=== PATIENT | female | born 1975 | race Caucasian/White ===

== ENCOUNTER 2019-03-08 20:12 | Inpatient (IN) | payer OTHER, SELFPAY ==
[2019-03-08 20:13] VITALS: BP 130/76; PULSE 112; RESP 16; TEMP 37.8; O2SAT 97; BMI 36.6
[2019-03-08 21:25] LABS: Mucous, Urine 0 SEEN /hpf (<or=2+); Red Blood Cells-Urine 0 SEEN /hpf (0-5); Squamous Epithelial Cells - UA 0 SEEN /hpf (5-10); White Blood Cells 0 SEEN /hpf (0-5)
[2019-03-08 21:27] LABS: Color, Urine Yellow (Yellow); Glucose, Dipstick 1000 mg/dl (Normal); Ketone-Dipstick Negative (Negative); Leukocyte Esterase-Dipstick Negative /ul (Negative); Nitrite-Dipstick Negative (Negative); Occult Blood-Urine Negative /ul (Negative); Protein-Dipstick Negative (Negative); Urine Bilirubin Dipstick Negative (Negative); Urine Clarity Clear (Clear); Urine Urobilinogen Normal (Normal)
[2019-03-08 21:30] VITALS: BP 130/76; PULSE 112; RESP 16; TEMP 37.8; O2SAT 97
[2019-03-08 21:33] LABS: Bacteria RARE /hpf (None Seen)
--- NOTE | 2019-03-08 21:33 | CT_ITS ---
STUDY: CT ABDOMEN AND PELVIS WITH CONTRAST REASON FOR EXAM: Female, 43 years old. Nausea and vomiting for one week. Abdominal pain. RADIATION DOSAGE (If Supplied By Facility): CTDIvol = ( 24.48 ) mGy, DLP = ( 1557.94 ) mGycm TECHNIQUE: Transaxial images were obtained from the dome of the diaphragm to the symphysis pubis with oral contrast. 100 IV/Oral Isovue 370 was administered. Sagittal and coronal images were reconstructed. Individualized dose optimization techniques were used for this CT. COMPARISON: None. FINDINGS: The visualized lung bases are unremarkable. The visualized portions of the heart are within normal limits. Normal liver. There are surgical clips in the gallbladder fossa consistent with a prior cholecystectomy. Splenomegaly without mass. Normal pancreas. Normal bilateral adrenal glands. Normal right kidney. Normal left kidney. Normal visualized stomach. Normal small intestine. Normal colon. There is a large abscess in the mesentery adjacent to the cecum appears to involve the proximal appendix. This measures 7.7 x 6.7 x 5.4 cm. Normal abdominal aorta. Normal inferior vena cava. Normal retroperitoneum. Normal urinary bladder. There is an IUD within the uterus. The adnexa are unremarkable. There is no pelvic lymphadenopathy or mass. No free air or free fluid is seen within the peritoneal cavity. Normal abdominal wall. Normal osseous structures. CT/Abdomen/Pelvis WITH Contrast IMPRESSION: 1. Large right lower quadrant abscess. Question appendiceal abscess. 2. Mild splenomegaly. 3. IUD. N.B. : The above information has been verbally conveyed by Noman Rodrigues DO to Kelly Naranjo MD, on 03/08/2019 23:53:59 (ET). Electronically Signed: Noman Rodrigues DO at 23:55 EDT Tel [phone], Service support ,
[2019-03-08 21:34] LABS: Internal QC Validated? YES +Cl - CLEAR BKGD; Pregnancy, Serum, hCG Quali. NEGATIVE Negative
[2019-03-08 21:39] LABS: Anion Gap 10 (5-15); BUN 9 mg/dL (7-18); BUN/Creat Ratio 11.4 RATIO (10-20); Calcium,Total 8.4 mg/dL (8.5-10.1); Chloride 93 mmol/L (98-107); Creatinine, Serum 0.79 mg/dL (0.55-1.02); EST Glomerular Filtration Rate 84 mL/min (>60); Est Glom Filt Rate - Afr Amer 101 mL/min (>60); Estimated Creatinine Clearance 78.47 ml/min; Glucose 398 mg/dL (74-106); Potassium 3.9 mmol/L (3.5-5.1); Sodium Level 128 mmol/L (136-145)
[2019-03-08 21:49] LABS: Basophil# 0.06 X10^3/uL; Basophil% 0.5 % (0-1); Eosinophil# 0.05 X10^3/uL; Eosinophils% 0.4 % (0-5); Hematocrit 35.6 % (37-47); Hemoglobin 12.1 g/dl (12.0-15.0); Lymphocyte % 14.2 % (19-41); Mean Corpuscular Hgb 27.8 pg (27.0-32.0); Mean Corpuscular Volume 81.7 fL (81-99); Mean Platelet Vol. 10.2 fl (6.2-12.0); Monocyte# 1.09 X10^3/uL; Monocyte% 9.1 % (0-10); Neutrophil # 8.99 X10^3/uL (2.7-7.7); Neutrophil % 74.9 % (47-70); Platelet Count 275 K/mm3 (150-450); RBC Distribution Width CV 13.1 % (11.6-14.6); RBC Distribution Width SD 38.5 fl (35.1-43.9); Red Blood Count 4.36 M/mm3 (4.2-5.4)
[2019-03-08 21:50] LABS: Differential Indicated SCAN CRITERIA MET; POSITIVE COUNT NO; POSITIVE DIFFERENTIAL NO; POSITIVE MORPHOLOGY YES
[2019-03-08] MEDS: Ondansetron 4 MG/2 ML Vial IV (22:17)
[2019-03-08] MEDS: Acetaminophen 500 MG Tablet 1000 MG PO (22:17)
[2019-03-08] MEDS: 0.9% Normal Saline 1,000 ML 1000 ML IV (22:17)
[2019-03-08] MEDS: Morphine 4 MG/ML Syringe IV (22:17)
[2019-03-08 22:24] LABS: Atypical Lymphocyte RARE %; Differential Comment SCANNED; Platelet Estimate ADEQUATE (ADEQ)
[2019-03-08 23:31] VITALS: BP 118/62; PULSE 84; RESP 22; TEMP 37.1; O2SAT 97
[2019-03-09] VITALS (19 sets, daily range): BP systolic 103–127; BP diastolic 55–84; PULSE 84–111; RESP 16–18; TEMP 36.7–38.4; O2SAT 88–100; BMI 36.1
--- NOTE | 2019-03-09 | COL_PTH ---
PATIENT: BENI RUBIO LOC: MS3 U#:[id number] AGE/SX: 43/F ROOM: AL318 RE03/09/[address]: Dr. Akbar Weems MD : 1975 BED: 1 DIS: 03/14/2019 SPEC #: [id number] RECD: 03/09/19 13:10 STATUS: LIZZY REQ #: [id number] ADAL: 03/09/19 00:[address]: Anjelica Jeffries DEPT: SURGICAL PATHOLOGY RECD BY: Wilder Rowland ENTERED: 03/09/19 14:20 SP TYPE: COLON OTHR DR: MD Dr. Gabriel Brennan DO Dr. Tamera Robotham, MD Dr. William Lago, MD Tissues: A - Colon, NOS B - Colon, NOS Procedures: Surgery Specimen Level IV Surgery Specimen Level V Comments: @ Ordering doctor for SUV edited from to @ by RGOOD at 03/09/19 1522 @ Submitting doctor edited from to @ by RGOOD at 03/09/19 1522 HEADER OPERATION: Diagnostic laparoscopy PRE-OP DIAGNOSIS: Perforated appendicitis with abscess TISSUE SUBMITTED: A - Cecum, B - Small bowel segment MICROSCOPIC DIAGNOSIS A. Cecum, segmental resection: Ruptured appendix with associated appendicitis, periappendicitis, abscess formation and adhesions. Margins of resection with no significant pathologic change. Cecum with serosal adhesions and acute and chronic inflammation. Three out of three lymph nodes with no pathologic change. B. Small bowel, segmental resection: Serosal adhesions, fibrinoid material and acute inflammation. AM:lee 03/11/19 COMMENT Case has been reviewed in consultation with Dr. Arrieta who concurs with the above diagnosis. IDC:SJ MICROSCOPIC DESCRIPTION Slides are reviewed. GROSS DESCRIPTION A - Received in fixative is one container labeled with the patient's name and designated cecum. The specimen consists of dilated cecum, segment of small intestine and a pink-hartley mass at the site of appendix. The cecum measures 10 cm in length and up to 9 cm in diameter. The segment of small intestine measures 11 cm in length and 2 cm in diameter. The mass at the site of appendicular area measures 8 x 5 x 4 cm. Both resection margins are stapled. The appendicular opening in the cecum shows markedly congested area. More dictation will follow after overnight fixation. The lumen contains small amount of hemorrhagic material. / SJ: 03/09/19 The appendix measures 5 cm in length and up to 1 cm in diameter. The lumen is pin point. Sections of pericolonic adipose tissue reveal two lymph nodes. The largest lymph node measures 1 cm in greatest dimension. Drilling Fluids Specialist sections are submitted in six cassettes as follows: 1 - resection margin, 24?- appendix, 5 - small intestine, large intestine and ileocecal valve, 6 - pericolonic adipose tissue and lymph nodes. / : 03/10/19 B - Received in fixative is one container labeled with the patient's name and designated small bowel. The specimen consists of a segment of small bowel measuring 10 cm in length. Both resection margins are stapled. The attached mesentery measures up to 3 cm in width. The serosal is focally covered with hartley, purulent exudate. No mucosal lesion is identified. Sections will be submitted after overnight fixation. / SJ: 03/09/19 Sections of the mesenteric tissue do not reveal any obviously enlarged lymph node. No mucosal lesion is identified. Drilling Fluids Specialist sections are submitted in three cassettes as follows: 1 - resection margin, 2??aircraft sales representative section of serosal surface covered with hartley, purulent exudate, 3 - aircraft sales representative section from other area and mesenteric tissue. / :lee 03/10/19 TC:2 CPT: 57875, 38332
--- NOTE | 2019-03-09 00:40 | CT_ITS ---
We are attempting to reach Kelly Naranjo MD to discuss findings. An addendum with communication details will be sent when the communication is complete. HISTORY: Pain EXAMINATION: CT Pelvis W/O Contrast TECHNIQUE:Routine noncontrast bone CT protocol was performed of the pelvis. 2-D reformats were performed by the technologist. A radiation dose optimization technique was used for this scan. IV Contrast dosage and agent: None. COMPARISON: CT abdomen and pelvis 03/08/[address] pelvis without additional contrast was performed. Previous IV contrast and oral contrast administration. Delayed scanning is helpful. There is transit of oral contrast into the colon. No bowel obstruction. The small bowel is nondilated. The terminal ileum shows compression from right lower quadrant abscess with air-fluid level. No communication of oral contrast with the abscess cavity which measures approximately 7 cm in diameter. Inferior and medial to the abscess cavity there is a tubular structure which appears related to the more distal appendix. The abscess is in keeping with appendicitis complicated by abscess formation. The abscess cavity abuts the cecum, terminal ileum, and upper margin of the right ovary. No pneumoperitoneum or free pelvic fluid. Bilateral renal excretion of contrast without hydronephrosis. The right ureter is well visualized and appears normal. Anteverted uterus with IUD in place which appears in appropriate position. Normal left ovary. Right ovarian 1.9 cm cyst. Normal urinary bladder. Bones: No acute osseous abnormality. CT/Pelvis without IV Contrast IMPRESSION: 1. Right lower quadrant 7 cm abscess with air-fluid level in keeping with appendiceal abscess. Details above. Individualized dose optimization techniques were used for this CT. at 0202 Reported and signed by: Blanco Lizarraga MD Electronically Signed: Blanco Lizarraga, at 2:01 EDT Tel , Service support ,
[2019-03-09] MEDS: Ciprofloxacin 400 MG/200 ML BAG 200 MG IV ×3 (00:50→21:18)
[2019-03-09] MEDS: 0.9% Normal Saline 1,000 ML 150 ML IV (00:50)
--- NOTE | 2019-03-09 01:16 | ED.DCSUM_ITS ---
- ER Visit Summary Date of Service: 03/09/19 Chief Complaint: Abdominal pain, nausea, vomiting History of Present Illness: The patient is a 43 F with a 9-day history of abdominal pain. She states she initially had generalized abdominal pain that is more localized to the right lower quadrant and now intermittent. She still has occasional fevers and still has nausea. Vomiting is improved. She states her last bowel movement was 8 days ago but she does not feel constipated. Patient is a history of diabetes, hypertension, high cholesterol. She has had prior cholecystectomy and C-sections. Physical Examination: Vital signs significant for temperature 100.0 and heart rate of 112. Patient lying in bed no acute distress. She is nontoxic appearing. Head neck examination normal. Heart tachycardic and regular. Lungs sounds are clear. Abdomen is soft with tenderness in the right lower quadrant. There is no guarding or rebound. Hypoactive bowel sounds are noted. Test Results: CBC was a white count of 12.0 with 75% neutrophils. Chemistry studies reveal a glucose of 398 and corresponding sodium of 128. Urinalysis shows 1000 glucose. test is negative. CT abdomen pelvis shows a large right lower quadrant abscess involving the proximal appendix. This measures 7.7 x 6.7 x 5.4 cm. Emergency Department Course and Treatment: Patient is treated with morphine, Zofran, IV fluids, and Tylenol. Upon completion of CT scan she is given Cipro and Flagyl as she does have penicillin allergy. I spoke with Dr. Jeffries who presented to the emergency room to evaluate the patient. Delayed images through the pelvis were obtained to help delineate colon from abscess. At this time patient will need admission for CT-guided drain. I will speak with hospitalist. Treatment Plan: [] Disposition: Admit Impression: Right lower quadrant abscess This note was generated with [employer] dictation software. It may contain incorrect words, spelling, and punctuation that were not noted in review of the chart prior to signing ED Disposition - Plan for ED Patient: Referrals: Ant Valladares MD [Primary Care Provider] -
--- NOTE | 2019-03-09 01:24 | PCM.HP.STD ---
Problem List (1) Sepsis Status: Acute (2) Abdominal abscess Status: Acute (3) Hyperglycemia Status: Acute (4) HTN (hypertension) Status: Chronic History of Present Illness Date of Admission: 03/09/19 Chief Complaint: ABDOMINAL PAIN The patient is a 43 year old F with a significant history of hypertension; diabetes mellitus type 2; obesity who presented to the emergency department with 9-day history of generalized abdominal pain that localized to her right lower quadrant. She describes the pain as aching and dull; but later it improved to a soreness that localized to the right lower quadrant. Associated with her symptoms is nausea; malaise and fatigue. She had one-time episode of vomiting about a week ago. She tried Tylenol that helped with the pain. Her pain worsened with lying on her abdomen. She went to her PCPs office and because her son had strep throat patient was tested for strep. However, her strep test was negative. At emergency department CT of her abdomen showed large right lower quadrant abscess. General surgery was consulted. Per discussion between general surgery and emergency department doctor percutaneous drainage of the abscess under CT guidance will be done. Patient was empirically started on ciprofloxacin and Flagyl. Past Medical History Past Medical History (Chronic Problems): Chronic Problems (Last Reviewed 03/09/19 @ 05:20 by Andrew Abreu MD) HTN (hypertension) (Chronic) Medical History: Medical History (Last Reviewed 03/09/19 @ 05:20 by Andrew Abreu MD) Diabetes E11.9 Allergies amoxicillin [From Augmentin] Allergy (Verified 03/08/19 20:16) Rash clavulanic acid [From Augmentin] Allergy (Verified 03/08/19 20:16) Rash Home Medications: Ambulatory Orders Medication Instructions Recorded Gemfibrozil 600 mg PO BID 03/08/19 Insulin Glargine,Hum.rec.anlog 24 units SQ DAILY 03/08/19 [Toujeo Solostar] Lisinopril [Zestril] 5 mg PO DAILY 03/08/19 Surgical History: cholecystectomy, - - ; and D&C. Lives: With Family Smoking Status: Former smoker - *Family History Maternal History Items: Asthma, Cancer - Cervical, COPD, Hypertension Paternal History Items: Heart Disease - Her father had a defibrillator. Review of Systems Constitutional: Reports: Anorexia, Malaise, Fatigue. Denies: Weight Change HEENT: Denies: Head Aches, Sinus Congestion, Sinus Drainage Cardiovascular: Denies: Chest Pain, Palpitations Respiratory: Denies: Cough, Shortness of breath at rest, Sputum production Gastrointestinal: Reports: Abdominal Pain, Nausea, Vomiting Genitourinary: Denies: Dysuria Musculoskeletal: Denies: Joint Pain, Joint Tenderness Skin: Denies: Rash, Wounds Neurological: Denies: Numbness, Tingling, Focal weakness Psychiatric: Denies: Anxiety, Depression, Homicidal Ideations, Suicidal Ideations Hematologic/ Lymphatic: Denies: Easy Bruising, Easy Bleeding VTE Information - Inpt Only VTE Present on Admission: No VTE Mechan Device Prophylaxis: SCD's VTE Pharm Prophylaxis ordered?: No Patient Problems: Active and Suspected Problems (Last Reviewed 03/09/19 @ 05:20 by Andrew Abreu MD) Sepsis (Acute) Abdominal abscess (Acute) Hyperglycemia (Acute) - Physical Exam General: Alert, Oriented x3, Cooperative HEENT: Atraumatic, PERRLA, EOMI, Normocephalic Neck: Supple, No JVD, Negative Carotid Bruits Lungs: Clear to auscultation, Normal air movement Cardiovascular: Regular rate, No murmurs Abdomen: Bowel Sounds Present, Soft, Obese, Tender - right lower quadrant. Extremities: No edema, Capillary Refill Less than 3 Seconds Skin: No rashes, No breakdown Musculoskeletal: No Tenderness to Palpation of Joints or Extremities Neurological: Neuro grossly intact Psych/Mental Status: Normal Affect, Appropriate Vital Signs Temp Pulse Resp BP Pulse Ox 98.7 F 84 22 H 118/62 97 03/08/19 23:31 03/08/19 23:31 03/08/19 23:31 03/08/19 23:31 03/08/19 23:31 Oxygen Delivery Method Room Air Weight: 96.615 kg Body Mass Index (BMI) 36.6 Laboratory Tests Past 24 Hrs 03/08/19 03/08/19 03/08/19 21:14 21:14 21:14 WBC 12.0 H RBC 4.36 Hgb 12.1 Hct 35.6 L MCV 81.7 MCH 27.8 MCHC 34.0 RDW 13.1 RDW Differential 38.5 Plt Count 275 MPV 10.2 Immature Gran % (Auto) 0.900 Neut % (Auto) 74.9 H Lymph % (Auto) 14.2 L [place] % (Auto) 9.1 Eos % (Auto) 0.4 Baso % (Auto) 0.5 Absolute Neuts (auto) 9.0 H Absolute Lymphs (auto) 1.70 Total Counted Not Reportable Differential Comment SCANNED Diff Path Review May foll Atypical Lymphocytes RARE Platelet Estimate ADEQUATE Sodium 128 L Potassium 3.9 Chloride 93 L Carbon Dioxide 25.0 Anion Gap 10 BUN 9 Creatinine 0.79 Estim Creat Clear Calc 78.47 Est GFR (MDRD) Af Amer 101 Est GFR (MDRD) Non-Af 84 BUN/Creatinine Ratio 11.4 Glucose 398 H Calcium 8.4 L Serum , Qual NEGATIVE Urine Color Urine Clarity Urine pH Ur Specific [place] Urine Protein Urine Glucose (UA) Urine Ketones Urine Occult Blood Urine Nitrite Urine Bilirubin Urine Urobilinogen Ur Leukocyte Esterase Urine RBC Urine WBC Ur Squamous Epith Cells Urine Bacteria Urine Mucus 03/08/19 21:20 WBC RBC Hgb Hct MCV MCH MCHC RDW RDW Differential Plt Count MPV Immature Gran % (Auto) Neut % (Auto) Lymph % (Auto) [place] % (Auto) Eos % (Auto) Baso % (Auto) Absolute Neuts (auto) Absolute Lymphs (auto) Total Counted Differential Comment Diff Path Review Atypical Lymphocytes Platelet Estimate Sodium Potassium Chloride Carbon Dioxide Anion Gap BUN Creatinine Estim Creat Clear Calc Est GFR (MDRD) Af Amer Est GFR (MDRD) Non-Af BUN/Creatinine Ratio Glucose Calcium Serum , Qual Urine Color Yellow Urine Clarity Clear Urine pH 6.0 Ur Specific [place] 1.010 Urine Protein Negative Urine Glucose (UA) 1000 H Urine Ketones Negative Urine Occult Blood Negative Urine Nitrite Negative Urine Bilirubin Negative Urine Urobilinogen Normal Ur Leukocyte Esterase Negative Urine RBC 0 SEEN Urine WBC 0 SEEN Ur Squamous Epith Cells 0 SEEN Urine Bacteria RARE Urine Mucus 0 SEEN Assessment/Plan All Active Problems (Last Reviewed 03/09/19 @ 05:20 by Andrew Abreu MD) Sepsis (Acute) Abdominal abscess (Acute) Hyperglycemia (Acute) The patient is a 43 year old F with a significant history of hypertension; diabetes mellitus type 2; obesity who presented to the emergency department with 9-day history of generalized abdominal pain that localized to her right lower quadrant; and found to meet SIRS criteria with tachypnea and tachycardia; and with radiographic evidence of abdominal abscess consistent with sepsis secondary to abdominal abscess. Sepsis secondary to abdominal abscess Patient with tachypnea with respiratory rate highest 22; tachycardia with highest heart rate of 112. CT of abdomen and pelvis was independently reviewed. I agree with radiologist interpretation of large abscess in right lower abdominal quadrant. Also found to have low-grade fever with T-max of 100.0. Found to have leukocytosis with white count of 12. And immature granulocytes at upper border of normal. Source control: Per discussion between general surgery and emergency department doctor patient will have percutaneous drainage of abscess under CT guidance. We will check PT/INR. Antibiotics: Patient received ciprofloxacin and Flagyl at emergency department. We will continue ciprofloxacin and Flagyl Tylenol for fevers of temperature more than 100.4. Morphine IV as needed for pain. We will trend CBC and BMP. We will get blood cultures and lactic acid. Patient received normal saline at emergency department. Will hydrate with lactated Ringer's with potassium. Diabetes mellitus with uncontrolled blood glucose. On admission patient's blood glucose was 398 on BMP. At home patient takes 24 units every day. She took this regimen at 11 AM on the day of admission. Patient is n.p.o. for now in preparation for procedure. Will order 15 units Lantus twice daily and place on correction scale insulin every 4 hours. Will hydrate with lactated Ringer's and potassium in the setting of hyperglycemia and insulin administration. Hyponatremia On presentation his sodium was 128. Her corrected sodium in view of hyperglycemia is 133. Lactated Ringer's with IV potassium as above. Trend BMP. HTN On presentation her blood pressure was fairly stable. While n.p.o. we will hold her lisinopril and order as needed labetalol if she will need this at all Trend blood pressure and adjust blood pressure medication. Hyperlipidemia Hold home gemfibrozil while n.p.o. DVT prophylaxis SCD Code Visit Inpatient E&M: 36429 Init Hosp L3
--- NOTE | 2019-03-09 01:28 | PCM.CONS.GEN ---
Reason for Consult Date of Consultation: 03/09/19 Reason for Consultation: Perforated appendicitis with abscess History of Present Illness: The patient is a 43 year old F presented to the ER due to not feeling well for about last 8 to 9 days. Patient states that on Thursday02/28/19 patient began to have abdominal pain she did see her PCP on the following day when she was having right lower quadrant pain she rated 5?6/10 she did have vomiting and some nausea. Patient was told by her PCP that the pain got worse to come in however patient states her abdomen continued to be tender to be a 4?5/10 and could range anywhere from 2-5/10 but it was not worse. Patient did states she has had nausea at night. She has had a decreased appetite but was able to eat yesterday some lunch meat and a small piece of pizza. Patient does have bowel movements which are loose but decreased in number overall she has been taking a stool softener. Patient currently rates her pain a 2?3/10. Patient did undergo CT abdomen pelvis which did show large right lower quadrant abscess near the base of the appendix. Repeat CT abdomen pelvis showed this area little clearer with contrast now in the cecum and small bowel read pending on the second delayed CAT scan. WBC is 12.0, patient is getting Cipro IV and Flagyl IV in the ER. Patient states she did have a colonoscopy 3 years ago in 2016 and did not have any polyps or mass at that time. Patient denies any family history of colon cancer. Patient does have diabetes and admits to not checking her blood sugars at home- she was dx a few years ago. Her BS was 400 at PCP office 03/01/19 per pt and again about 400 now. Past Medical History Past Medical History (Chronic Problems): Chronic Problems (Last Reviewed 03/09/19 @ 05:20 by Andrew Abreu MD) HTN (hypertension) (Chronic) Medical History: Medical History (Last Reviewed 03/09/19 @ 05:20 by Andrew Abreu MD) Diabetes E11.9 Allergies amoxicillin [From Augmentin] Allergy (Verified 03/08/19 20:16) Rash clavulanic acid [From Augmentin] Allergy (Verified 03/08/19 20:16) Rash Home Medications: Ambulatory Orders Medication Instructions Recorded Gemfibrozil 600 mg PO BID 03/08/19 Insulin Glargine,Hum.rec.anlog 24 units SQ DAILY 03/08/19 [Tokeesha Soldexterar] Lisinopril [Zestril] 5 mg PO DAILY 03/08/19 Surgical History: cholecystectomy - laparoscopic, - - csection, d&C Psychiatric History: No pertinent psych hx APPEALS ANALYST History: No pertinent APPEALS ANALYST history Smoking Status: Former smoker - *Family History Maternal History Items: No pertinent history Paternal History Items: Heart Disease - Her father had a defibrillator. Review of Systems Constitutional: Reports: Fatigue. Denies: Fever Eyes: Denies: Blurred vision HEENT: Denies: Difficulty Swallowing Cardiovascular: Denies: Chest Pain Respiratory: Denies: Shortness of breath at rest Gastrointestinal: Reports: Abdominal Pain, Constipation, Nausea Genitourinary: Denies: Dysuria Psychiatric: Denies: Depression Hematologic/ Lymphatic: Denies: Easy Bruising, Easy Bleeding Patient Problems: Active and Suspected Problems (Last Reviewed 03/09/19 @ 05:20 by Andrew Abreu MD) Sepsis (Acute) Abdominal abscess (Acute) Hyperglycemia (Acute) - Physical Exam General: Alert, Oriented x3, Cooperative, No apparent distress HEENT: Atraumatic Lungs: Normal air movement Cardiovascular: Regular rate Abdomen: Soft, Non-Distended, Tender - RLQ with slight firm area with palpation compared to left side, no PS Extremities: No clubbing, No cyanosis, No edema Neurological: Cranial nerves II-XII grossly intact Psych/Mental Status: Normal Affect Vital Signs Temp Pulse Resp BP Pulse Ox 98.7 F 84 22 H 118/62 97 03/08/19 23:31 03/08/19 23:31 03/08/19 23:31 03/08/19 23:31 03/08/19 23:31 Oxygen Delivery Method Room Air Weight: 213 lb Body Mass Index (BMI) 36.6 Laboratory Tests Past 24 Hrs 03/08/19 03/08/19 03/08/19 21:14 21:14 21:14 WBC 12.0 H RBC 4.36 Hgb 12.1 Hct 35.6 L MCV 81.7 MCH 27.8 MCHC 34.0 RDW 13.1 RDW Differential 38.5 Plt Count 275 MPV 10.2 Immature Gran % (Auto) 0.900 Neut % (Auto) 74.9 H Lymph % (Auto) 14.2 L [place] % (Auto) 9.1 Eos % (Auto) 0.4 Baso % (Auto) 0.5 Absolute Neuts (auto) 9.0 H Absolute Lymphs (auto) 1.70 Total Counted Not Reportable Differential Comment SCANNED Diff Path Review May foll Atypical Lymphocytes RARE Platelet Estimate ADEQUATE Sodium 128 L Potassium 3.9 Chloride 93 L Carbon Dioxide 25.0 Anion Gap 10 BUN 9 Creatinine 0.79 Estim Creat Clear Calc 78.47 Est GFR (MDRD) Af Amer 101 Est GFR (MDRD) Non-Af 84 BUN/Creatinine Ratio 11.4 Glucose 398 H Calcium 8.4 L Serum , Qual NEGATIVE Urine Color Urine Clarity Urine pH Ur Specific [place] Urine Protein Urine Glucose (UA) Urine Ketones Urine Occult Blood Urine Nitrite Urine Bilirubin Urine Urobilinogen Ur Leukocyte Esterase Urine RBC Urine WBC Ur Squamous Epith Cells Urine Bacteria Urine Mucus 03/08/19 21:20 WBC RBC Hgb Hct MCV MCH MCHC RDW RDW Differential Plt Count MPV Immature Gran % (Auto) Neut % (Auto) Lymph % (Auto) [place] % (Auto) Eos % (Auto) Baso % (Auto) Absolute Neuts (auto) Absolute Lymphs (auto) Total Counted Differential Comment Diff Path Review Atypical Lymphocytes Platelet Estimate Sodium Potassium Chloride Carbon Dioxide Anion Gap BUN Creatinine Estim Creat Clear Calc Est GFR (MDRD) Af Amer Est GFR (MDRD) Non-Af BUN/Creatinine Ratio Glucose Calcium Serum , Qual Urine Color Yellow Urine Clarity Clear Urine pH 6.0 Ur Specific [place] 1.010 Urine Protein Negative Urine Glucose (UA) 1000 H Urine Ketones Negative Urine Occult Blood Negative Urine Nitrite Negative Urine Bilirubin Negative Urine Urobilinogen Normal Ur Leukocyte Esterase Negative Urine RBC 0 SEEN Urine WBC 0 SEEN Ur Squamous Epith Cells 0 SEEN Urine Bacteria RARE Urine Mucus 0 SEEN Assessment/Plan All Active Problems (Last Reviewed 03/09/19 @ 05:20 by Andrew Abreu MD) Sepsis (Acute) Abdominal abscess (Acute) Hyperglycemia (Acute) 43-year-old female with likely perforated appendicitis with abscess 1. N.p.o./IV fluid/Cipro IV and Flagyl IV. We will have IR place a drain in the abscess in AM. Discussed with patient she may be here while she may also need to repeat CAT scans to monitor progress of the drainage. Also discussed with patient that if they are unable to place IR drain patient may need surgery to place a drain. Patient was agreeable with plan. 2. Admit to medicine, blood sugar control per hospitalist. Anjelica Jeffries M.D. Pager: [phone] [facility] [address] [place] [address], [address] [place] [id number] Office: [phone]
--- NOTE | 2019-03-09 01:33 | CON.PCM_ITS ---
Reason for Consult Date of Consultation: 03/09/19 Reason for Consultation: Perforated appendicitis with abscess History of Present Illness: The patient is a 43 year old F presented to the ER due to not feeling well for about last 8 to 9 days. Patient states that on Thursday02/28/19 patient began to have abdominal pain she did see her PCP on the following day when she was having right lower quadrant pain she rated 5?6/10 she did have vomiting and some nausea. Patient was told by her PCP that the pain got worse to come in however patient states her abdomen continued to be tender to be a 4?5/10 and could range anywhere from 2-5/10 but it was not worse. Patient did states she has had nausea at night. She has had a decreased appetite but was able to eat yesterday some lunch meat and a small piece of pizza. Patient does have bowel movements which are loose but decreased in number overall she has been taking a stool softener. Patient currently rates her pain a 2?3/10. Patient did undergo CT abdomen pelvis which did show large right lower quadrant abscess near the base of the appendix. Repeat CT abdomen pelvis showed this area little clearer with contrast now in the cecum and small bowel read pending on the second delayed CAT scan. WBC is 12.0, patient is getting Cipro IV and Flagyl IV in the ER. Patient states she did have a colonoscopy 3 years ago in 2016 and did not have any polyps or mass at that time. Patient denies any family history of colon cancer. Patient does have diabetes and admits to not checking her blood sugars at home- she was dx a few years ago. Her BS was 400 at PCP office 03/01/19 per pt and again about 400 now. Past Medical History Past Medical History (Chronic Problems): Chronic Problems (Last Reviewed 03/09/19 @ 05:20 by Andrew Abreu MD) HTN (hypertension) (Chronic) Medical History: Medical History (Last Reviewed 03/09/19 @ 05:20 by Andrew Abreu MD) Diabetes E11.9 Allergies amoxicillin [From Augmentin] Allergy (Verified 03/08/19 20:16) Rash clavulanic acid [From Augmentin] Allergy (Verified 03/08/19 20:16) Rash Home Medications: Ambulatory Orders Medication Instructions Recorded Gemfibrozil 600 mg PO BID 03/08/19 Insulin Glargine,Hum.rec.anlog 24 units SQ DAILY 03/08/19 [Tokeesha Soldexterar] Lisinopril [Zestril] 5 mg PO DAILY 03/08/19 Surgical History: cholecystectomy - laparoscopic, - - csection, d&C Psychiatric History: No pertinent psych hx ERP PM History: No pertinent ERP PM history Smoking Status: Former smoker - *Family History Maternal History Items: No pertinent history Paternal History Items: Heart Disease - Her father had a defibrillator. Review of Systems Constitutional: Reports: Fatigue. Denies: Fever Eyes: Denies: Blurred vision HEENT: Denies: Difficulty Swallowing Cardiovascular: Denies: Chest Pain Respiratory: Denies: Shortness of breath at rest Gastrointestinal: Reports: Abdominal Pain, Constipation, Nausea Genitourinary: Denies: Dysuria Psychiatric: Denies: Depression Hematologic/ Lymphatic: Denies: Easy Bruising, Easy Bleeding Patient Problems: Active and Suspected Problems (Last Reviewed 03/09/19 @ 05:20 by Andrew Abreu MD) Sepsis (Acute) Abdominal abscess (Acute) Hyperglycemia (Acute) - Physical Exam General: Alert, Oriented x3, Cooperative, No apparent distress HEENT: Atraumatic Lungs: Normal air movement Cardiovascular: Regular rate Abdomen: Soft, Non-Distended, Tender - RLQ with slight firm area with palpation compared to left side, no PS Extremities: No clubbing, No cyanosis, No edema Neurological: Cranial nerves II-XII grossly intact Psych/Mental Status: Normal Affect Vital Signs Temp Pulse Resp BP Pulse Ox 98.7 F 84 22 H 118/62 97 03/08/19 23:31 03/08/19 23:31 03/08/19 23:31 03/08/19 23:31 03/08/19 23:31 Oxygen Delivery Method Room Air Weight: 213 lb Body Mass Index (BMI) 36.6 Laboratory Tests Past 24 Hrs 03/08/19 03/08/19 03/08/19 21:14 21:14 21:14 WBC 12.0 H RBC 4.36 Hgb 12.1 Hct 35.6 L MCV 81.7 MCH 27.8 MCHC 34.0 RDW 13.1 RDW Differential 38.5 Plt Count 275 MPV 10.2 Immature Gran % (Auto) 0.900 Neut % (Auto) 74.9 H Lymph % (Auto) 14.2 L [place] % (Auto) 9.1 Eos % (Auto) 0.4 Baso % (Auto) 0.5 Absolute Neuts (auto) 9.0 H Absolute Lymphs (auto) 1.70 Total Counted Not Reportable Differential Comment SCANNED Diff Path Review May foll Atypical Lymphocytes RARE Platelet Estimate ADEQUATE Sodium 128 L Potassium 3.9 Chloride 93 L Carbon Dioxide 25.0 Anion Gap 10 BUN 9 Creatinine 0.79 Estim Creat Clear Calc 78.47 Est GFR (MDRD) Af Amer 101 Est GFR (MDRD) Non-Af 84 BUN/Creatinine Ratio 11.4 Glucose 398 H Calcium 8.4 L Serum , Qual NEGATIVE Urine Color Urine Clarity Urine pH Ur Specific [place] Urine Protein Urine Glucose (UA) Urine Ketones Urine Occult Blood Urine Nitrite Urine Bilirubin Urine Urobilinogen Ur Leukocyte Esterase Urine RBC Urine WBC Ur Squamous Epith Cells Urine Bacteria Urine Mucus 03/08/19 21:20 WBC RBC Hgb Hct MCV MCH MCHC RDW RDW Differential Plt Count MPV Immature Gran % (Auto) Neut % (Auto) Lymph % (Auto) [place] % (Auto) Eos % (Auto) Baso % (Auto) Absolute Neuts (auto) Absolute Lymphs (auto) Total Counted Differential Comment Diff Path Review Atypical Lymphocytes Platelet Estimate Sodium Potassium Chloride Carbon Dioxide Anion Gap BUN Creatinine Estim Creat Clear Calc Est GFR (MDRD) Af Amer Est GFR (MDRD) Non-Af BUN/Creatinine Ratio Glucose Calcium Serum , Qual Urine Color Yellow Urine Clarity Clear Urine pH 6.0 Ur Specific [place] 1.010 Urine Protein Negative Urine Glucose (UA) 1000 H Urine Ketones Negative Urine Occult Blood Negative Urine Nitrite Negative Urine Bilirubin Negative Urine Urobilinogen Normal Ur Leukocyte Esterase Negative Urine RBC 0 SEEN Urine WBC 0 SEEN Ur Squamous Epith Cells 0 SEEN Urine Bacteria RARE Urine Mucus 0 SEEN Assessment/Plan All Active Problems (Last Reviewed 03/09/19 @ 05:20 by Andrew Abreu MD) Sepsis (Acute) Abdominal abscess (Acute) Hyperglycemia (Acute) 43-year-old female with likely perforated appendicitis with abscess 1. N.p.o./IV fluid/Cipro IV and Flagyl IV. We will have IR place a drain in the abscess in AM. Discussed with patient she may be here while she may also need to repeat CAT scans to monitor progress of the drainage. Also discussed with patient that if they are unable to place IR drain patient may need surgery to place a drain. Patient was agreeable with plan. 2. Admit to medicine, blood sugar control per hospitalist. Anjelica Jeffries M.D. Pager: [phone] [facility] [address] [place] [address], [address] [place] [id number] Office: [phone]
[2019-03-09 03:16] LABS: Bedside Glucose 251 mg/dL (70-110)
[2019-03-09] MEDS: Insulin Lispro 100 UNIT/ML INSULN.PEN SQ ×4 (03:16→22:49)
[2019-03-09 03:32] LABS: Absolute Lymphocyte Count 1.27 X10^3/ul (0.83-4.51); Absolute Neutrophil Count 8.1 X10^3/uL (2.0-7.7); Basophil# 0.07 X10^3/uL; Basophil% 0.7 % (0-1); Eosinophil# 0.11 X10^3/uL; Hematocrit 34.9 % (37-47); Hemoglobin 11.8 g/dl (12.0-15.0); Lymphocyte # 1.27 X10^3/ul (4.0); Lymphocyte % 11.9 % (19-41); Mean Corp Hgb Conc 33.8 g/gl (32-36); Mean Corpuscular Hgb 27.6 pg (27.0-32.0); Mean Corpuscular Volume 81.7 fL (81-99); Monocyte# 1.07 X10^3/uL; Neutrophil # 8.07 X10^3/uL (2.7-7.7); Neutrophil % 75.7 % (47-70); Platelet Count 273 K/mm3 (150-450); Red Blood Count 4.27 M/mm3 (4.2-5.4); White Blood Count 10.7 K/mm3 (4.4-11.0)
[2019-03-09 03:34] LABS: Differential Indicated SCAN CRITERIA MET; POSITIVE COUNT NO; POSITIVE DIFFERENTIAL NO; POSITIVE MORPHOLOGY YES
[2019-03-09 03:37] LABS: International Normalized Ratio 1.2; Prothrombin Time (Protime)PT. 14.8 SECONDS (11.7-14.9)
[2019-03-09 03:47] LABS: Differential Comment SCANNED
[2019-03-09 03:49] LABS: Anion Gap 9 (5-15); BUN 6 mg/dL (7-18); Chloride 97 mmol/L (98-107); Creatinine, Serum 0.67 mg/dL (0.55-1.02); EST Glomerular Filtration Rate 102 mL/min (>60); Est Glom Filt Rate - Afr Amer 123 mL/min (>60); Estimated Creatinine Clearance 92.53 ml/min; Glucose 267 mg/dL (74-106); Potassium 3.7 mmol/L (3.5-5.1); Sodium Level 132 mmol/L (136-145)
[2019-03-09 06:25] LABS: Bedside Glucose 260 mg/dL (70-110)
--- NOTE | 2019-03-09 07:26 | PN.SURG_ITS ---
Patient Problems: Active and Suspected Problems (Last Reviewed 03/09/19 @ 05:20 by Andrew Abreu MD) Sepsis (Acute) Abdominal abscess (Acute) Hyperglycemia (Acute) Subjective: Patient evaluated resting comfortably in bed. She denies abdominal pain unless palpated. She denies nausea, vomiting. She notes feeling flush. - Physical Exam General: Alert, Oriented x3, Cooperative Abdomen: Soft, Hypoactive Bowel Sounds, Tender - RLQ Vital Signs Temp Pulse Resp BP Pulse Ox 98.7 F 94 16 114/77 100 03/09/19 03:00 03/09/19 03:51 03/09/19 03:00 03/09/19 03:00 03/09/19 03:00 Oxygen Delivery Method Room Air Weight: 210 lb 3 oz Body Mass Index (BMI) 36.1 Intake and Output for Last 24 Hours 03/07/19 03/08/19 03/09/19 23:59 23:59 23:59 Intake Total 645 / 645 Output Total 900 / 900 Balance -255 / -255 Laboratory Tests Past 24 Hrs 03/08/19 03/08/19 03/08/19 21:14 21:14 21:14 WBC 12.0 H RBC 4.36 Hgb 12.1 Hct 35.6 L MCV 81.7 MCH 27.8 MCHC 34.0 RDW 13.1 RDW Differential 38.5 Plt Count 275 MPV 10.2 Immature Gran % (Auto) 0.900 Neut % (Auto) 74.9 H Lymph % (Auto) 14.2 L [place] % (Auto) 9.1 Eos % (Auto) 0.4 Baso % (Auto) 0.5 Absolute Neuts (auto) 9.0 H Absolute Lymphs (auto) 1.70 Total Counted Not Reportable Differential Comment SCANNED Diff Path Review May foll Atypical Lymphocytes RARE Platelet Estimate ADEQUATE PT INR Sodium 128 L Potassium 3.9 Chloride 93 L Carbon Dioxide 25.0 Anion Gap 10 BUN 9 Creatinine 0.79 Estim Creat Clear Calc 78.47 Est GFR (MDRD) Af Amer 101 Est GFR (MDRD) Non-Af 84 BUN/Creatinine Ratio 11.4 Glucose 398 H Lactic Acid Calcium 8.4 L Serum , Qual NEGATIVE Urine Color Urine Clarity Urine pH Ur Specific [place] Urine Protein Urine Glucose (UA) Urine Ketones Urine Occult Blood Urine Nitrite Urine Bilirubin Urine Urobilinogen Ur Leukocyte Esterase Urine RBC Urine WBC Ur Squamous Epith Cells Urine Bacteria Urine Mucus 03/08/19 03/09/19 03/09/19 21:20 03:00 03:00 WBC 10.7 RBC 4.27 Hgb 11.8 L Hct 34.9 L MCV 81.7 MCH 27.6 MCHC 33.8 RDW 13.0 RDW Differential 38.0 Plt Count 273 MPV 10.0 Immature Gran % (Auto) 0.700 Neut % (Auto) 75.7 H Lymph % (Auto) 11.9 L [place] % (Auto) 10.0 Eos % (Auto) 1.0 Baso % (Auto) 0.7 Absolute Neuts (auto) 8.1 H Absolute Lymphs (auto) 1.27 Total Counted Not Reportable Differential Comment SCANNED Diff Path Review Atypical Lymphocytes Platelet Estimate PT INR Sodium Potassium Chloride Carbon Dioxide Anion Gap BUN Creatinine Estim Creat Clear Calc Est GFR (MDRD) Af Amer Est GFR (MDRD) Non-Af BUN/Creatinine Ratio Glucose Lactic Acid 1.0 Calcium Serum , Qual Urine Color Yellow Urine Clarity Clear Urine pH 6.0 Ur Specific [place] 1.010 Urine Protein Negative Urine Glucose (UA) 1000 H Urine Ketones Negative Urine Occult Blood Negative Urine Nitrite Negative Urine Bilirubin Negative Urine Urobilinogen Normal Ur Leukocyte Esterase Negative Urine RBC 0 SEEN Urine WBC 0 SEEN Ur Squamous Epith Cells 0 SEEN Urine Bacteria RARE Urine Mucus 0 SEEN 03/09/19 03/09/19 03:00 03:00 WBC RBC Hgb Hct MCV MCH MCHC RDW RDW Differential Plt Count MPV Immature Gran % (Auto) Neut % (Auto) Lymph % (Auto) [place] % (Auto) Eos % (Auto) Baso % (Auto) Absolute Neuts (auto) Absolute Lymphs (auto) Total Counted Differential Comment Diff Path Review Atypical Lymphocytes Platelet Estimate PT 14.8 INR 1.2 Sodium 132 L Potassium 3.7 Chloride 97 L Carbon Dioxide 26.0 Anion Gap 9 BUN 6 L Creatinine 0.67 Estim Creat Clear Calc 92.53 Est GFR (MDRD) Af Amer 123 Est GFR (MDRD) Non-Af 102 BUN/Creatinine Ratio 9.0 L Glucose 267 H Lactic Acid Calcium 8.0 L Serum , Qual Urine Color Urine Clarity Urine pH Ur Specific [place] Urine Protein Urine Glucose (UA) Urine Ketones Urine Occult Blood Urine Nitrite Urine Bilirubin Urine Urobilinogen Ur Leukocyte Esterase Urine RBC Urine WBC Ur Squamous Epith Cells Urine Bacteria Urine Mucus POC Glucose 03/09/19 03/09/19 06:14 03:13 POC Glucose 260 H 251 H Medical Necessity - Tobacco Use Smoking Status: Former smoker Assessment/Plan All Active Problems (Last Reviewed 03/09/19 @ 05:20 by Andrew Abreu MD) Sepsis (Acute) Abdominal abscess (Acute) Hyperglycemia (Acute) I am following this patient in conjunction with Dr. Jeffries. Impression: Abdominal pain. RLQ abscess likely etiology ruptured appendicitis CT guided drainage of the abscess later today possibly around 1300p Continue NPO until after procedure We will continue to monitor this patient Code Visit Inpatient E&M: 66540 Subs Hosp L1
--- NOTE | 2019-03-09 08:00 | CT_ITS ---
STUDY: CT PELVIS WITHOUT CONTRAST REASON FOR EXAM: Female, 43 years old. Patient was scheduled for possible percutaneous aspiration of the abscess collection in the right lower quadrant. RADIATION DOSAGE (If Supplied By Facility): CTDIvol = ( 14.44 ) mGy, DLP = ( 355.86 ) mGycm TECHNIQUE: Transaxial imaging of the pelvis was performed with oral contrast, and without intravenous administration of contrast material. Individualized dose optimization techniques were used for this CT. COMPARISON: Comparison is made with prior study done earlier today. FINDINGS: Once again, there is evidence of an abscess with an air-fluid level in the right lower quadrant involving the region of the appendix and the cecum. The surgeon decided not to drain the collection by percutaneous catheter placement due to the location and consistency of the abscess. CT/Pelvis without IV Contrast IMPRESSION: Aborted percutaneous aspiration of the right lower quadrant abscess. Electronically Signed: Alan Veliz, at 8:15 EDT , Service support ,
--- NOTE | 2019-03-09 12:12 | OP.PCM_ITS ---
Report of Operation Date of Procedure: 03/09/19 Pre-Operative Diagnosis: Perforated appendicitis with abscess Post-Operative Diagnosis: Perforated appendicitis with abscess and phlegmon Surgery/Procedure Performed:: Diagnostic laparoscopic converted to laparotomy, ileocecectomy, small bowel resection manager technical sales: Rommel Padilla Type of Anesthesia:: General/Supplemental Anesthesiologist: Odilon Fernandez Special Medications: Cipro 400 mg IV x1 and Flagyl 500 mg IV x1 Specimen's removed: Ileocecectomy, small bowel resection Drains: Ellis 150 cc Estimated Blood Loss (mL): 100 cc Fluids Replaced: 2 L Description of Procedure: Indications a 43-year-old female presented to the ER due to right lower quadrant for the last [address] abdomen pelvis was consistent with a perforated appendicitis with abscess. IR drain unable to be placed due to small bowel in the way. Diagnostic laparoscopy was planned with possible laparotomy, possible bowel resection. Patient was on Cipro/Flagyl IV on the floor for perforated appendicitis with abscess. Patient was placed supine on the operating table. Timeout was completed correct patient, procedure, position, special, prior to beginning procedure. General anesthesia was induced. Ellis catheter was placed. The left arm was tucked and padded appropriately. Abdomen was prepped and draped in usual sterile fashion. Incision was made in the natural skin line above the umbilicus with a 15 blade scalpel. The fascia was elevated and incised. Entry into the peritoneum was confirmed visually and no bowel was noted in the vicinity of the incision. The Zamudio trocar was placed under direct vision. Abdomen insufflated with a pressure of 12-15 mmHg. Patient tolerated insertion well. The scope was inserted and the abdomen inspected. No injuries from initial trocar placement were noted. There is noted to be a firm mass in the right lower quadrant initially looked like the right ovary was involved. Did have Dr. Tobias come take a look at the ovary, it was able to be from the mass with gentle dissection. Dr. Tobias thought the right ovary looked normal and as well as the left ovary. Due to the dense adhesions unable to slightly continue laparoscopically was converted to laparotomy. A midline incision was made with 10 blade scalpel deepened with electrocautery. Abdomen was entered under direct visualization no injury was noted. Trochars were rem hazel under direct visualization. A wound protector was placed. The abscess cavity was entered and the area was filled with foul-smelling franco fluid. This was irrigated and culture obtained. There was a large abscess medial to the cecum along with phlegmon. This was able to be gently dissected free. This tissue was very inflamed surrounding the cecum and in the large abscess cavity area as well. There was oozing from this inflamed tissue which was controlled once were able to resect the cecum and phlegmon. The cecum was mobilized using the white line of Toldt to the ascending colon. There was a segment of small bowel in the distal jejunum which was adherent to the phlegmon and had serosal tear. Small bowel resection was done at this location as the serosal tear was too large to repair primarily. The bowel was divided with the cutting linear stapler in each resection margin past the table as specimen after the Enseal was used to come across the mesentery. Enterotomies were made in the antimesenteric borders and the cutting linear stapler inserted and fired. The lumen was inspected for hemostasis. Enterotomies were closed with a single firing of a TL 60 linear stapler. The anastomosis was then inspected for patency and integrity. 2-0 silk suture was placed as a crotch stitch. The mesenteric defect closed with a running suture of 3-0 Vicryl. Ileocecectomy was performed. The mid ascending colon was divided with the linear cutting stapler as well as the terminal ileum. The Enseal was used to come across the mesentery. The ileocecal vessels were suture-ligated with 2-0 silk suture. Enterotomies were made in the antimesenteric border of the small bowel and along the tinea in the ascending colon. A linear cutter was inserted and fired. The lumen was inspected for hemostasis. The enterotomies were closed with a single fire of TL 60 linear stapler. The anastomosis was inspected for patency entirety. A 2-0 silk suture was placed as a crotch stitch. The abdomen was irrigated with copious amounts of saline until clear. All gowns and gloves were changed. The fascia was closed with running sutures of 1 0 PDS. The wound was irrigated with saline. The skin was closed with alban with 3 saline soaked Telfa hi placed in between. The trocar sites were closed with skin alban as well. The patient was extubated. The patient tolerated the procedure well and was taken to the postanesthesia care unit in satisfactory condition. - Complications None - Admit VTE Documentation VTE Present on Admission: Yes VTE Mechan Device Prophylaxis: SCD's
--- NOTE | 2019-03-09 12:25 | CASEMGMT ---
RN CM NOTE: To room to complete RN CM assessment. Pt out of room @ OR. CM to attempt at another time. Nicolasa BSN RN CM
[2019-03-09 12:41] LABS: Bedside Glucose 262 mg/dL (70-110)
[2019-03-09 18:11] LABS: Bedside Glucose 305 mg/dL (70-110)
--- NOTE | 2019-03-09 19:31 | PCM.HOSP.N ---
Hospitalist Note Patient was seen and examined briefly today, she underwent a diagnostic laparoscopic converted to laparotomy ileocecectomy, small bowel resection due to a perforated appendicitis with abscess and phlegmon. The time of my examination today, she is sitting up in a chair and appears to be comfortable. Her chronic medical problems include hypertension, hyperlipidemia, and type 2 diabetes. I discussed her care with general surgery today, patient will remain on Flagyl and Cipro IV, blood sugars and blood pressure will be monitored.
[2019-03-09 23:01] LABS: Bedside Glucose 277 mg/dL (70-110)
[2019-03-10] VITALS (9 sets, daily range): BP systolic 103–121; BP diastolic 64–88; PULSE 90–103; RESP 16–18; TEMP 37.1–37.4; O2SAT 91–96
[2019-03-10] MEDS: 0.9% NaCl Peripheral Flush Adult/Peds IV ×2 (05:15→06:42)
[2019-03-10] MEDS: Morphine 2 MG/ML Syringe IV (05:15)
[2019-03-10] MEDS: Ondansetron 4 MG/2 ML Vial IV (05:15)
[2019-03-10] MEDS: Insulin Lispro 100 UNIT/ML INSULN.PEN SQ ×4 (05:26→23:59)
[2019-03-10 05:35] LABS: Bedside Glucose 172 mg/dL (70-110)
[2019-03-10 05:42] LABS: Absolute Lymphocyte Count 1.16 X10^3/ul (0.83-4.51); Absolute Neutrophil Count 8.4 X10^3/uL (2.0-7.7); Basophil# 0.03 X10^3/uL; Basophil% 0.3 % (0-1); Eosinophil# 0.03 X10^3/uL; Eosinophils% 0.3 % (0-5); Hematocrit 33.3 % (37-47); Hemoglobin 10.9 g/dl (12.0-15.0); Lymphocyte # 1.16 X10^3/ul (4.0); Lymphocyte % 10.8 % (19-41); Mean Corp Hgb Conc 32.7 g/gl (32-36); Mean Corpuscular Hgb 27.2 pg (27.0-32.0); Mean Platelet Vol. 9.8 fl (6.2-12.0); Monocyte# 1.06 X10^3/uL; Monocyte% 9.9 % (0-10); Neutrophil % 78.2 % (47-70); Platelet Count 276 K/mm3 (150-450); RBC Distribution Width CV 13.5 % (11.6-14.6); Red Blood Count 4.01 M/mm3 (4.2-5.4); White Blood Count 10.7 K/mm3 (4.4-11.0)
[2019-03-10 06:04] LABS: Anion Gap 6 (5-15); BUN 7 mg/dL (7-18); BUN/Creat Ratio 12.5 RATIO (10-20); Calcium,Total 7.5 mg/dL (8.5-10.1); Chloride 104 mmol/L (98-107); Creatinine, Serum 0.56 mg/dL (0.55-1.02); EST Glomerular Filtration Rate 125 mL/min (>60); Est Glom Filt Rate - Afr Amer 151 mL/min (>60); Glucose 193 mg/dL (74-106); POSITIVE COUNT NO; POSITIVE DIFFERENTIAL NO; POSITIVE MORPHOLOGY NO; Phosphorus 2.2 mg/dL (2.5-4.9); Potassium 3.8 mmol/L (3.5-5.1); Sodium Level 136 mmol/L (136-145)
[2019-03-10 07:52] LABS: Hemoglobin A1c 10.3 % (4.2-6.3)
[2019-03-10] MEDS: Ciprofloxacin 400 MG/200 ML BAG 200 MG IV ×2 (09:13→21:45)
--- NOTE | 2019-03-10 09:18 | PCM.PN.SRG ---
Patient Problems: Active and Suspected Problems (Last Reviewed 03/09/19 @ 05:20 by Andrew Abreu MD) Sepsis (Acute) Abdominal abscess (Acute) Hyperglycemia (Acute) Subjective: Patient is doing well. Pain is controlled with pain meds she only needed 1 dose since surgery. Patient has been ambulating up in chair. Patient had adequate urine output Ellis was removed and patient has voided since. Patient denies any nausea or vomiting she did eat some nausea meds as a precaution with the morphine but was not nauseous at the time. - Physical Exam General: Alert, Oriented x3, Cooperative, No apparent distress HEENT: Atraumatic Lungs: Normal air movement Cardiovascular: Regular rate Abdomen: Soft, Non-Distended, Tender - Near incision, appropriate, incision dressed clean dry and intact, no peritoneal signs Extremities: No clubbing, No cyanosis, No edema Neurological: Cranial nerves II-XII grossly intact Psych/Mental Status: Normal Affect Vital Signs Temp Pulse Resp BP Pulse Ox 99.3 F H 94 18 111/68 96 03/10/19 05:10 03/10/19 05:10 03/10/19 05:10 03/10/19 05:10 03/10/19 05:10 Oxygen Flow Rate (L/min) 3.5 Oxygen Delivery Method Room Air Weight: 210 lb 1.608 oz Body Mass Index (BMI) 36.1 Finger Stick Blood Glucose 262 Intake and Output for Last 24 Hours 03/08/19 03/09/19 03/10/19 23:59 23:59 23:59 Intake Total 5322 / 5322 805 / 805 Output Total 1565 / 1565 350 / 350 Balance 3757 / 3757 455 / 455 Microbiology Past 72 Hours 03/09/19 11:40 Gram Stain - Final Wound Abcess - Abdominal 03/09/19 11:40 Gram Stain - Final Incision/Surgical Site Laboratory Tests Past 24 Hrs 03/09/19 03/10/19 03/10/19 10:55 05:34 05:34 WBC 10.7 RBC 4.01 L Hgb 10.9 L Hct 33.3 L MCV 83.0 MCH 27.2 MCHC 32.7 RDW 13.5 RDW Differential 41.0 Plt Count 276 MPV 9.8 Immature Gran % (Auto) 0.500 Neut % (Auto) 78.2 H Lymph % (Auto) 10.8 L [place] % (Auto) 9.9 Eos % (Auto) 0.3 Baso % (Auto) 0.3 Absolute Neuts (auto) 8.4 H Absolute Lymphs (auto) 1.16 Total Counted Not Reportable Sodium 136 Potassium 3.8 Chloride 104 Carbon Dioxide 26.0 Anion Gap 6 BUN 7 Creatinine 0.56 Estim Creat Clear Calc 110.70 Est GFR (MDRD) Af Amer 151 Est GFR (MDRD) Non-Af 125 BUN/Creatinine Ratio 12.5 Glucose 193 H Hemoglobin A1c Calcium 7.5 L Phosphorus 2.2 L Magnesium 2.0 Blood Type O POSITIVE Antibody Screen NEGATIVE 03/10/19 05:34 WBC RBC Hgb Hct MCV MCH MCHC RDW RDW Differential Plt Count MPV Immature Gran % (Auto) Neut % (Auto) Lymph % (Auto) [place] % (Auto) Eos % (Auto) Baso % (Auto) Absolute Neuts (auto) Absolute Lymphs (auto) Total Counted Sodium Potassium Chloride Carbon Dioxide Anion Gap BUN Creatinine Estim Creat Clear Calc Est GFR (MDRD) Af Amer Est GFR (MDRD) Non-Af BUN/Creatinine Ratio Glucose Hemoglobin A1c 10.3 H Calcium Phosphorus Magnesium Blood Type Antibody Screen POC Glucose 03/10/19 03/09/19 03/09/19 05:25 22:48 17:57 POC Glucose 172 H 277 H 305 H 03/09/19 12:21 POC Glucose 262 H Medical Necessity - Tobacco Use Smoking Status: Former smoker Assessment/Plan All Active Problems (Last Reviewed 03/09/19 @ 05:20 by Andrew Abreu MD) Sepsis (Acute) Abdominal abscess (Acute) Hyperglycemia (Acute) 43-year-old female postop day 1 status post ileocecectomy, small bowel resection due to perforated appendicitis with abscess 1. Okay for sips and chips sparingly. Continue until bowel function. Continue IV fluids. 2. Urine output adequate, Ellis removed this morning. 3. Continue pain control 4. Continue up in chair and ambulation and I.S Anjelica Jeffries M.D. Pager: [phone] [facility] [address] [place] [address], [facility], [address] [place] [address] Office: [phone]
--- NOTE | 2019-03-10 09:21 | PN.SURG_ITS ---
Patient Problems: Active and Suspected Problems (Last Reviewed 03/09/19 @ 05:20 by Andrew Abreu MD) Sepsis (Acute) Abdominal abscess (Acute) Hyperglycemia (Acute) Subjective: Patient is doing well. Pain is controlled with pain meds she only needed 1 dose since surgery. Patient has been ambulating up in chair. Patient had adequate urine output Ellis was removed and patient has voided since. Patient denies any nausea or vomiting she did eat some nausea meds as a precaution with the morphine but was not nauseous at the time. - Physical Exam General: Alert, Oriented x3, Cooperative, No apparent distress HEENT: Atraumatic Lungs: Normal air movement Cardiovascular: Regular rate Abdomen: Soft, Non-Distended, Tender - Near incision, appropriate, incision dressed clean dry and intact, no peritoneal signs Extremities: No clubbing, No cyanosis, No edema Neurological: Cranial nerves II-XII grossly intact Psych/Mental Status: Normal Affect Vital Signs Temp Pulse Resp BP Pulse Ox 99.3 F H 94 18 111/68 96 03/10/19 05:10 03/10/19 05:10 03/10/19 05:10 03/10/19 05:10 03/10/19 05:10 Oxygen Flow Rate (L/min) 3.5 Oxygen Delivery Method Room Air Weight: 210 lb 1.608 oz Body Mass Index (BMI) 36.1 Finger Stick Blood Glucose 262 Intake and Output for Last 24 Hours 03/08/19 03/09/19 03/10/19 23:59 23:59 23:59 Intake Total 5322 / 5322 805 / 805 Output Total 1565 / 1565 350 / 350 Balance 3757 / 3757 455 / 455 Microbiology Past 72 Hours 03/09/19 11:40 Gram Stain - Final Wound Abcess - Abdominal 03/09/19 11:40 Gram Stain - Final Incision/Surgical Site Laboratory Tests Past 24 Hrs 03/09/19 03/10/19 03/10/19 10:55 05:34 05:34 WBC 10.7 RBC 4.01 L Hgb 10.9 L Hct 33.3 L MCV 83.0 MCH 27.2 MCHC 32.7 RDW 13.5 RDW Differential 41.0 Plt Count 276 MPV 9.8 Immature Gran % (Auto) 0.500 Neut % (Auto) 78.2 H Lymph % (Auto) 10.8 L [place] % (Auto) 9.9 Eos % (Auto) 0.3 Baso % (Auto) 0.3 Absolute Neuts (auto) 8.4 H Absolute Lymphs (auto) 1.16 Total Counted Not Reportable Sodium 136 Potassium 3.8 Chloride 104 Carbon Dioxide 26.0 Anion Gap 6 BUN 7 Creatinine 0.56 Estim Creat Clear Calc 110.70 Est GFR (MDRD) Af Amer 151 Est GFR (MDRD) Non-Af 125 BUN/Creatinine Ratio 12.5 Glucose 193 H Hemoglobin A1c Calcium 7.5 L Phosphorus 2.2 L Magnesium 2.0 Blood Type O POSITIVE Antibody Screen NEGATIVE 03/10/19 05:34 WBC RBC Hgb Hct MCV MCH MCHC RDW RDW Differential Plt Count MPV Immature Gran % (Auto) Neut % (Auto) Lymph % (Auto) [place] % (Auto) Eos % (Auto) Baso % (Auto) Absolute Neuts (auto) Absolute Lymphs (auto) Total Counted Sodium Potassium Chloride Carbon Dioxide Anion Gap BUN Creatinine Estim Creat Clear Calc Est GFR (MDRD) Af Amer Est GFR (MDRD) Non-Af BUN/Creatinine Ratio Glucose Hemoglobin A1c 10.3 H Calcium Phosphorus Magnesium Blood Type Antibody Screen POC Glucose 03/10/19 03/09/19 03/09/19 05:25 22:48 17:57 POC Glucose 172 H 277 H 305 H 03/09/19 12:21 POC Glucose 262 H Medical Necessity - Tobacco Use Smoking Status: Former smoker Assessment/Plan All Active Problems (Last Reviewed 03/09/19 @ 05:20 by Andrew Abreu MD) Sepsis (Acute) Abdominal abscess (Acute) Hyperglycemia (Acute) 43-year-old female postop day 1 status post ileocecectomy, small bowel resection due to perforated appendicitis with abscess 1. Okay for sips and chips sparingly. Continue until bowel function. Continue IV fluids. 2. Urine output adequate, Ellis removed this morning. 3. Continue pain control 4. Continue up in chair and ambulation and I.S Anjelica Jeffries M.D. Pager: [phone] [facility] [address] [place] [address], Outpatient [facility]ilion, [address] [place] [address] Office: [phone]
--- NOTE | 2019-03-10 09:30 | CASEMGMT ---
RN CM [employer]LE [employer] CONSULTANT CM to room to meet with patient for initial transition planning/care coordination assessment. REBECA SALGADO introduced self and role at [facility]. Pt voices understanding and consents to assessment at this time. Pt sitting up in recliner chair in no distress at this time. Pt is A/O at this time and answers all questions appropriately. Care providers, pharmacy, and demographics verified/updated at this time. PCP: [facility]: denies Preferred Pharmacy: [facility] [place] Insurance: MMO Prescription Benefit: Yes Living Will/HPOA: Pt does not currently have LW/HCPOA and declines info at this time. LNOK: , 3 children Living Arrangements: Lives with and 3 children. Independent with all ADL's and home mgmt tasks. Transportation: Pt states drives self and states no transportation concerns at this time. DME: Denies using any DME and denies needs. HHC/SNF: No history of either. Denies needs and no needs identified. Pt wishes to return home and states has no concerns with going home at time of discharge. CM to follow for discharge planning/needs. Pt voices no further concerns/needs at this time. Advised pt to ask for CM if any further questions/concerns/needs arise. Voices understanding. PLAN: Home w/family support and discharge plans in place. Nicolasa MULLINS RN, CM
[2019-03-10 12:00] LABS: Bedside Glucose 201 mg/dL (70-110)
[2019-03-10 14:02] LABS: Pathologist Review Reviewed
[2019-03-10 18:21] LABS: Bedside Glucose 182 mg/dL (70-110)
--- NOTE | 2019-03-10 19:03 | PN_ITS ---
Patient Problems: Active and Suspected Problems (Last Reviewed 03/09/19 @ 05:20 by Andrew Abreu MD) Sepsis (Acute) Abdominal abscess (Acute) Hyperglycemia (Acute) Subjective: Patient was seen and examined today, she is seated in a chair and is inquiring whether she could and take liquids at this time. I told her it would be up to surgery. Patient is not having any complaints of shortness of breath or chest discomfort. - Physical Exam General: Alert, Oriented x3, Cooperative HEENT: Atraumatic, PERRLA, EOMI, Normocephalic Neck: Supple, No JVD, Negative Carotid Bruits Lungs: Clear to auscultation, Normal air movement, No rhonchi, No wheeze, No rales Cardiovascular: Regular rate, Regular Rhythm, Normal S1, Normal S2, No murmurs, No Ectopic Activity Extremities: No clubbing, No cyanosis, No edema, Capillary Refill Less than 3 Seconds Skin: No rashes, No breakdown Musculoskeletal: No Tenderness to Palpation of Joints or Extremities Neurological: Cranial nerves II-XII grossly intact, Neuro grossly intact, Sensory exam intact to light touch and pain, Coordination normal Psych/Mental Status: Normal Affect, Appropriate, Alert and oriented to time, place, person, mood and affect Vital Signs Temp Pulse Resp BP Pulse Ox 99.1 F 103 H 18 121/67 H 95 03/10/19 17:10 03/10/19 17:10 03/10/19 17:10 03/10/19 17:10 03/10/19 17:10 Oxygen Flow Rate (L/min) 3.5 Oxygen Delivery Method Room Air Weight: 95.3 kg Body Mass Index (BMI) 36.1 Finger Stick Blood Glucose 262 Intake and Output for Last 24 Hours 03/08/19 03/09/19 03/10/19 23:59 23:59 23:59 Intake Total 5322 / 5322 2251 / 2251 Output Total 1565 / 1565 551 / 551 Balance 3757 / 3757 1700 / 1700 Microbiology Past 72 Hours 03/09/19 11:40 Gram Stain - Final Wound Abcess - Abdominal Wound Culture - Preliminary GNR lactose gaming department head 03/09/19 11:40 Gram Stain - Final Incision/Surgical Site Wound Culture - Preliminary No growth-Final to follow Laboratory Tests Past 24 Hrs 03/08/19 03/10/1919 21:14 05:34 05:34 WBC 10.7 RBC 4.01 L Hgb 10.9 L Hct 33.3 L MCV 83.0 MCH 27.2 MCHC 32.7 RDW 13.5 RDW Differential 41.0 Plt Count 276 MPV 9.8 Immature Gran % (Auto) 0.500 Neut % (Auto) 78.2 H Lymph % (Auto) 10.8 L [place] % (Auto) 9.9 Eos % (Auto) 0.3 Baso % (Auto) 0.3 Absolute Neuts (auto) 8.4 H Absolute Lymphs (auto) 1.16 Total Counted Not Reportable Diff Path Review Reviewed Sodium 136 Potassium 3.8 Chloride 104 Carbon Dioxide 26.0 Anion Gap 6 BUN 7 Creatinine 0.56 Estim Creat Clear Calc 110.70 Est GFR (MDRD) Af Amer 151 Est GFR (MDRD) Non-Af 125 BUN/Creatinine Ratio 12.5 Glucose 193 H Hemoglobin A1c Calcium 7.5 L Phosphorus 2.2 L Magnesium 2.0 03/10/19 05:34 WBC RBC Hgb Hct MCV MCH MCHC RDW RDW Differential Plt Count MPV Immature Gran % (Auto) Neut % (Auto) Lymph % (Auto) [place] % (Auto) Eos % (Auto) Baso % (Auto) Absolute Neuts (auto) Absolute Lymphs (auto) Total Counted Diff Path Review Sodium Potassium Chloride Carbon Dioxide Anion Gap BUN Creatinine Estim Creat Clear Calc Est GFR (MDRD) Af Amer Est GFR (MDRD) Non-Af BUN/Creatinine Ratio Glucose Hemoglobin A1c 10.3 H Calcium Phosphorus Magnesium POC Glucose 03/10/19 03/10/19 03/10/19 18:08 11:55 05:25 POC Glucose 182 H 201 H 172 H 03/09/19 22:48 POC Glucose 277 H Medical Necessity - Tobacco Use Smoking Status: Former smoker Assessment/Plan All Active Problems (Last Reviewed 03/09/19 @ 05:20 by Andrew Abreu MD) Sepsis (Acute) Abdominal abscess (Acute) Hyperglycemia (Acute) #1 perforated appendicitis with abscess and phlegmon-status post laparotomy ileocecectomy with small bowel resection-postop day #1-continue care per surgery #2 type 2 diabetes-continue to monitor blood sugars, administer sliding scale insulin as needed #3 hypertension-patient's blood pressure is not been a problem, continue to observe #4 hyperlipidemia Code Visit Inpatient E&M: 52538 Subs Hosp L2
[2019-03-10] MEDS: Ketorolac 15 MG/ML Vial IV (20:25)
[2019-03-10 22:00] LABS: Bedside Glucose 177 mg/dL (70-110)
[2019-03-11] VITALS (7 sets, daily range): BP systolic 102–136; BP diastolic 66–88; PULSE 95–100; RESP 16–18; TEMP 36.7–37.1; O2SAT 94–99
[2019-03-11] MEDS: BENZOCAINE/MENTHOL 1 LOZENGE MUCOUS MEM ×2 (00:01→16:46)
[2019-03-11 00:06] LABS: Bedside Glucose 185 mg/dL (70-110)
[2019-03-11] MEDS: Insulin Lispro 100 UNIT/ML INSULN.PEN SQ ×3 (06:24→17:38)
[2019-03-11 06:31] LABS: Bedside Glucose 166 mg/dL (70-110)
--- NOTE | 2019-03-11 08:28 | PCM.PN.SRG ---
Patient Problems: Active and Suspected Problems (Last Reviewed 03/09/19 @ 05:20 by Andrew Abreu MD) Sepsis (Acute) Abdominal abscess (Acute) Hyperglycemia (Acute) Subjective: Patient denies any nausea or vomiting on sips and chips. Patient denies any flatus. Pain is controlled, patient is ambulating - Physical Exam General: Alert, Oriented x3, Cooperative, No apparent distress HEENT: Atraumatic Lungs: Normal air movement Cardiovascular: Regular rate Abdomen: Soft, Distended - Mild, Tender - Near incision appropriate, incision clean dry and intact with alban, ricks removed today, no peritoneal signs Extremities: No clubbing, No cyanosis, No edema Neurological: Cranial nerves II-XII grossly intact Psych/Mental Status: Normal Affect Vital Signs Temp Pulse Resp BP Pulse Ox 98.7 F 95 18 117/66 99 03/11/19 08:13 03/11/19 08:13 03/11/19 08:13 03/11/19 08:13 03/11/19 08:13 Oxygen Flow Rate (L/min) 3.5 Oxygen Delivery Method Room Air Weight: 210 lb 1.608 oz Body Mass Index (BMI) 36.1 Finger Stick Blood Glucose 262 Intake and Output for Last 24 Hours 03/09/19 03/10/19 03/11/19 23:59 23:59 23:59 Intake Total 5322 / 5322 2251 / 2251 1337 / 1337 Output Total 1565 / 1565 551 / 551 600 / 600 Balance 3757 / 3757 1700 / 1700 737 / 737 Microbiology Past 72 Hours 03/09/19 11:40 Gram Stain - Final Wound Abcess - Abdominal Wound Culture - Final Escherichia coli 03/09/19 03:15 Blood Culture - Preliminary Blood Culture (Wb) - Anticubital Right No growth in 48 hours. 03/09/19 03:00 Blood Culture - Preliminary Blood Culture (Wb) - Anticubital Right No growth in 48 hours. 03/09/19 11:40 Gram Stain - Final Incision/Surgical Site Wound Culture - Preliminary No growth-Final to follow Laboratory Tests Past 24 Hrs 03/08/19 21:14 Diff Path Review Reviewed POC Glucose 03/11/19 03/10/19 03/10/19 06:22 23:58 21:43 POC Glucose 166 H 185 H 177 H 03/10/19 03/10/19 18:08 11:55 POC Glucose 182 H 201 H Medical Necessity - Tobacco Use Smoking Status: Former smoker Assessment/Plan All Active Problems (Last Reviewed 03/09/19 @ 05:20 by Andrew Abreu MD) Sepsis (Acute) Abdominal abscess (Acute) Hyperglycemia (Acute) 43-year-old female postop day 2 status post ileocecectomy, small bowel resection due to perforated appendicitis with abscess 1. Okay for sips and chips sparingly. Continue until bowel function, okay for clears with flatus but will wait for abdominal before further advancing. Continue IV fluids decreased to 80 from 100. Plan for staple removal in about 10 days from surgery. 2. Continue pain control 3. Continue up in chair and ambulation and I.S Dr. Schuster will be covering over the weekend. Anjelica Jeffries M.D. Pager: [phone] [facility] [address] [place] [address], [facility], [address] [place] [address] Office: [phone]
--- NOTE | 2019-03-11 08:31 | PN.SURG_ITS ---
Patient Problems: Active and Suspected Problems (Last Reviewed 03/09/19 @ 05:20 by Andrew Abreu MD) Sepsis (Acute) Abdominal abscess (Acute) Hyperglycemia (Acute) Subjective: Patient denies any nausea or vomiting on sips and chips. Patient denies any flatus. Pain is controlled, patient is ambulating - Physical Exam General: Alert, Oriented x3, Cooperative, No apparent distress HEENT: Atraumatic Lungs: Normal air movement Cardiovascular: Regular rate Abdomen: Soft, Distended - Mild, Tender - Near incision appropriate, incision clean dry and intact with alban, ricks removed today, no peritoneal signs Extremities: No clubbing, No cyanosis, No edema Neurological: Cranial nerves II-XII grossly intact Psych/Mental Status: Normal Affect Vital Signs Temp Pulse Resp BP Pulse Ox 98.7 F 95 18 117/66 99 03/11/19 08:13 03/11/19 08:13 03/11/19 08:13 03/11/19 08:13 03/11/19 08:13 Oxygen Flow Rate (L/min) 3.5 Oxygen Delivery Method Room Air Weight: 210 lb 1.608 oz Body Mass Index (BMI) 36.1 Finger Stick Blood Glucose 262 Intake and Output for Last 24 Hours 03/09/19 03/10/19 03/11/19 23:59 23:59 23:59 Intake Total 5322 / 5322 2251 / 2251 1337 / 1337 Output Total 1565 / 1565 551 / 551 600 / 600 Balance 3757 / 3757 1700 / 1700 737 / 737 Microbiology Past 72 Hours 03/09/19 11:40 Gram Stain - Final Wound Abcess - Abdominal Wound Culture - Final Escherichia coli 03/09/19 03:15 Blood Culture - Preliminary Blood Culture (Wb) - Anticubital Right No growth in 48 hours. 03/09/19 03:00 Blood Culture - Preliminary Blood Culture (Wb) - Anticubital Right No growth in 48 hours. 03/09/19 11:40 Gram Stain - Final Incision/Surgical Site Wound Culture - Preliminary No growth-Final to follow Laboratory Tests Past 24 Hrs 03/08/19 21:14 Diff Path Review Reviewed POC Glucose 03/11/19 03/10/19 03/10/19 06:22 23:58 21:43 POC Glucose 166 H 185 H 177 H 03/10/19 03/10/19 18:08 11:55 POC Glucose 182 H 201 H Medical Necessity - Tobacco Use Smoking Status: Former smoker Assessment/Plan All Active Problems (Last Reviewed 03/09/19 @ 05:20 by Andrew Abreu MD) Sepsis (Acute) Abdominal abscess (Acute) Hyperglycemia (Acute) 43-year-old female postop day 2 status post ileocecectomy, small bowel resection due to perforated appendicitis with abscess 1. Okay for sips and chips sparingly. Continue until bowel function, okay for clears with flatus but will wait for abdominal before further advancing. Continue IV fluids decreased to 80 from 100. Plan for staple removal in about 10 days from surgery. 2. Continue pain control 3. Continue up in chair and ambulation and I.S Dr. Schuster will be covering over the weekend. Anjelica Jeffries M.D. Pager: [phone] [facility] [address] [place] [address], [facility], [address] [place] [address] Office: [phone]
[2019-03-11 09:08] LABS: Anion Gap 6 (5-15); BUN 8 mg/dL (7-18); BUN/Creat Ratio 15.7 RATIO (10-20); Calcium,Total 7.6 mg/dL (8.5-10.1); Chloride 107 mmol/L (98-107); Creatinine, Serum 0.51 mg/dL (0.55-1.02); EST Glomerular Filtration Rate 139 mL/min (>60); Est Glom Filt Rate - Afr Amer 168 mL/min (>60); Estimated Creatinine Clearance 121.56 ml/min; Glucose 171 mg/dL (74-106); Potassium 3.9 mmol/L (3.5-5.1); Sodium Level 140 mmol/L (136-145)
[2019-03-11 09:19] LABS: Absolute Lymphocyte Count 1.37 X10^3/ul (0.83-4.51); Absolute Neutrophil Count 10.7 X10^3/uL (2.0-7.7); Basophil# 0.06 X10^3/uL; Basophil% 0.5 % (0-1); Eosinophil# 0.08 X10^3/uL; Eosinophils% 0.6 % (0-5); Hemoglobin 10.8 g/dl (12.0-15.0); Lymphocyte # 1.37 X10^3/ul (4.0); Lymphocyte % 10.6 % (19-41); Mean Corp Hgb Conc 32.7 g/gl (32-36); Mean Corpuscular Hgb 27.5 pg (27.0-32.0); Mean Platelet Vol. 9.7 fl (6.2-12.0); Monocyte# 0.67 X10^3/uL; Monocyte% 5.2 % (0-10); Neutrophil # 10.69 X10^3/uL (2.7-7.7); Neutrophil % 82.3 % (47-70); Platelet Count 317 K/mm3 (150-450); RBC Distribution Width CV 13.7 % (11.6-14.6); RBC Distribution Width SD 42.7 fl (35.1-43.9); Red Blood Count 3.93 M/mm3 (4.2-5.4)
[2019-03-11 09:20] LABS: Differential Indicated SCAN CRITERIA MET; POSITIVE COUNT NO; POSITIVE DIFFERENTIAL NO; POSITIVE MORPHOLOGY YES
[2019-03-11 09:25] LABS: Platelet Estimate ADEQUATE (ADEQ); Platelet Morphology CLUMPED; Red Cell Morphology NORM C+C NORMAL (NORM C&C)
[2019-03-11] MEDS: Ciprofloxacin 400 MG/200 ML BAG 200 MG IV ×2 (10:25→22:55)
[2019-03-11] MEDS: Lactated Ringers 1,000 ML 80 ML IV (12:20)
[2019-03-11] MEDS: 0.9% NaCl Peripheral Flush Adult/Peds IV (12:52)
[2019-03-11] MEDS: Ondansetron 4 MG/2 ML Vial IV (12:52)
[2019-03-11 13:11] LABS: Bedside Glucose 207 mg/dL (70-110)
[2019-03-11] MEDS: Ketorolac 15 MG/ML Vial IV ×2 (14:59→20:41)
[2019-03-11 17:50] LABS: Bedside Glucose 178 mg/dL (70-110)
--- NOTE | 2019-03-11 19:36 | PN_ITS ---
Patient Problems: Active and Suspected Problems (Last Reviewed 03/09/19 @ 05:20 by Andrew Abreu MD) Sepsis (Acute) Abdominal abscess (Acute) Hyperglycemia (Acute) Subjective: Patient was seen and examined today, she is passing no stool according to the patient, patient also states that she is not passing gas. - Physical Exam General: Alert, Oriented x3, Cooperative, No apparent distress, Well developed HEENT: Atraumatic, PERRLA, EOMI, Normocephalic Oral: Moist Mucosa Neck: Supple, No JVD, Negative Carotid Bruits Lungs: Clear to auscultation, Normal air movement Cardiovascular: Regular rate, Regular Rhythm, Normal S1, Normal S2, No murmurs, No Ectopic Activity Abdomen: Non-Distended, Hypoactive Bowel Sounds Extremities: No edema, Capillary Refill Less than 3 Seconds Skin: No rashes, No breakdown Musculoskeletal: No Tenderness to Palpation of Joints or Extremities Neurological: Cranial nerves II-XII grossly intact, Neuro grossly intact, Sensory exam intact to light touch and pain, Coordination normal Psych/Mental Status: Normal Affect, Appropriate, Alert and oriented to time, place, person, mood and affect Vital Signs Temp Pulse Resp BP Pulse Ox 98.2 F 99 18 136/76 H 98 03/11/19 15:03 03/11/19 15:03 03/11/19 15:03 03/11/19 15:03 03/11/19 15:03 Oxygen Flow Rate (L/min) 3.5 Oxygen Delivery Method Room Air Weight: 95.3 kg Body Mass Index (BMI) 36.1 Finger Stick Blood Glucose 262 Intake and Output for Last 24 Hours 03/09/19 03/10/19 03/11/19 23:59 23:59 23:59 Intake Total 5322 / 5322 2251 / 2251 2948 / 2948 Output Total 1565 / 1565 551 / 551 1275 / 1275 Balance 3757 / 3757 1700 / 1700 1673 / 1673 Microbiology Past 72 Hours 03/09/19 11:40 Gram Stain - Final Wound Abcess - Abdominal Wound Culture - Final Escherichia coli Anaerobic Culture - Preliminary Checking for anaerobes, further studies to follow. 03/09/19 11:40 Gram Stain - Final Incision/Surgical Site Wound Culture - Preliminary No growth-Final to follow 03/09/19 03:15 Blood Culture - Preliminary Blood Culture (Wb) - Anticubital Right No growth in 48 hours. 03/09/19 03:00 Blood Culture - Preliminary Blood Culture (Wb) - Anticubital Right No growth in 48 hours. Laboratory Tests Past 24 Hrs 03/11/19 03/11/19 08:27 08:27 WBC 13.0 H RBC 3.93 L Hgb 10.8 L Hct 33.0 L MCV 84.0 MCH 27.5 MCHC 32.7 RDW 13.7 RDW Differential 42.7 Plt Count 317 MPV 9.7 Immature Gran % (Auto) 0.800 Neut % (Auto) 82.3 H Lymph % (Auto) 10.6 L [place] % (Auto) 5.2 Eos % (Auto) 0.6 Baso % (Auto) 0.5 Absolute Neuts (auto) 10.7 H Absolute Lymphs (auto) 1.37 Total Counted Not Reportable Platelet Estimate ADEQUATE Plt Morphology Comment CLUMPED RBC Morphology NORM C+C Sodium 140 Potassium 3.9 Chloride 107 Carbon Dioxide 27.0 Anion Gap 6 BUN 8 Creatinine 0.51 L Estim Creat Clear Calc 121.56 Est GFR (MDRD) Af Amer 168 Est GFR (MDRD) Non-Af 139 BUN/Creatinine Ratio 15.7 Glucose 171 H Calcium 7.6 L POC Glucose 03/11/19 03/11/19 03/11/19 17:37 12:09 06:22 POC Glucose 178 H 207 H 166 H 03/10/19 03/10/19 23:58 21:43 POC Glucose 185 H 177 H Medical Necessity - Tobacco Use Smoking Status: Former smoker Assessment/Plan All Active Problems (Last Reviewed 03/09/19 @ 05:20 by Andrew Abreu MD) Sepsis (Acute) Abdominal abscess (Acute) Hyperglycemia (Acute) #1 perforated appendicitis with abscess and phlegmon-status post laparotomy ileocecectomy with small bowel resection-postop day #2-continue care per surgery #2 type 2 diabetes-continue to monitor blood sugars, administer sliding scale insulin as needed #3 hypertension-patient's blood pressure is not been a problem, continue to observe #4 hyperlipidemia #5 sepsis secondary to perforated appendicitis with abscess-organism E. coli Code Visit Inpatient E&M: 04574 Subs Hosp L2
[2019-03-11 21:56] LABS: Bedside Glucose 177 mg/dL (70-110)
[2019-03-12] MEDS: Insulin Lispro 100 UNIT/ML INSULN.PEN SQ ×4 (00:27→17:44)
[2019-03-12] MEDS: Lactated Ringers 1,000 ML 80 ML IV ×2 (00:33→14:14)
[2019-03-12 00:40] LABS: Bedside Glucose 168 mg/dL (70-110)
[2019-03-12 02:00] VITALS: BP 124/78; PULSE 90; RESP 18; TEMP 37.1; O2SAT 97
[2019-03-12 06:41] LABS: Bedside Glucose 166 mg/dL (70-110)
[2019-03-12 07:29] VITALS: O2SAT 93
[2019-03-12 08:00] VITALS: BP 125/78; PULSE 91; RESP 14; TEMP 36.8; O2SAT 93
[2019-03-12 08:12] LABS: Absolute Lymphocyte Count 1.59 X10^3/ul (0.83-4.51); Absolute Neutrophil Count 8.3 X10^3/uL (2.0-7.7); Basophil# 0.07 X10^3/uL; Basophil% 0.7 % (0-1); Eosinophil# 0.13 X10^3/uL; Eosinophils% 1.2 % (0-5); Hematocrit 31.6 % (37-47); Hemoglobin 10.2 g/dl (12.0-15.0); Lymphocyte # 1.59 X10^3/ul (4.0); Lymphocyte % 14.8 % (19-41); Mean Corp Hgb Conc 32.3 g/gl (32-36); Mean Corpuscular Hgb 27.1 pg (27.0-32.0); Mean Platelet Vol. 9.9 fl (6.2-12.0); Monocyte# 0.55 X10^3/uL; Monocyte% 5.1 % (0-10); Neutrophil # 8.25 X10^3/uL (2.7-7.7); Neutrophil % 77.1 % (47-70); Platelet Count 282 K/mm3 (150-450); RBC Distribution Width CV 13.8 % (11.6-14.6); RBC Distribution Width SD 42.4 fl (35.1-43.9); Red Blood Count 3.76 M/mm3 (4.2-5.4); White Blood Count 10.7 K/mm3 (4.4-11.0)
[2019-03-12 08:13] LABS: Differential Indicated SCAN CRITERIA MET; POSITIVE COUNT NO; POSITIVE DIFFERENTIAL NO; POSITIVE MORPHOLOGY YES
[2019-03-12 08:16] LABS: Anion Gap 6 (5-15); BUN 9 mg/dL (7-18); BUN/Creat Ratio 19.5 RATIO (10-20); Calcium,Total 7.4 mg/dL (8.5-10.1); Chloride 107 mmol/L (98-107); Creatinine, Serum 0.46 mg/dL (0.55-1.02); EST Glomerular Filtration Rate 156 mL/min (>60); Est Glom Filt Rate - Afr Amer 189 mL/min (>60); Estimated Creatinine Clearance 134.77 ml/min; Glucose 158 mg/dL (74-106); Potassium 3.5 mmol/L (3.5-5.1); Sodium Level 138 mmol/L (136-145)
[2019-03-12 08:41] LABS: Platelet Estimate ADEQUATE (ADEQ); Platelet Morphology CLUMPED
[2019-03-12 08:42] LABS: Differential Comment SCANNED
--- NOTE | 2019-03-12 10:32 | PCM.PN.SRG ---
Patient Problems: Active and Suspected Problems (Last Reviewed 03/09/19 @ 05:20 by Andrew Abreu MD) Sepsis (Acute) Abdominal abscess (Acute) Hyperglycemia (Acute) Subjective: Patient has had no flatus and has had no bowel movements yet. Her pain is fairly well controlled she still feels distended Objective: Her abdomen is soft her incision looks clean without signs of infection. - Physical Exam Vital Signs Temp Pulse Resp BP Pulse Ox 98.3 F 91 14 125/78 H 93 03/12/19 08:00 03/12/19 08:00 03/12/19 08:00 03/12/19 08:00 03/12/19 08:00 Oxygen Flow Rate (L/min) 3.5 Oxygen Delivery Method Room Air Weight: 210 lb 1.608 oz Body Mass Index (BMI) 36.1 Finger Stick Blood Glucose 262 Intake and Output for Last 24 Hours 03/10/19 03/11/19 03/12/19 23:59 23:59 23:59 Intake Total 2251 / 2251 2948 / 2948 1499 / 1499 Output Total 551 / 551 1275 / 1275 Balance 1700 / 1700 1673 / 1673 1499 / 1499 Microbiology Past 72 Hours 03/09/19 11:40 Gram Stain - Final Wound Abcess - Abdominal Wound Culture - Final Escherichia coli Anaerobic Culture - Preliminary Checking for anaerobes, further studies to follow. 03/09/19 11:40 Gram Stain - Final Incision/Surgical Site Wound Culture - Preliminary No growth-Final to follow 03/09/19 03:15 Blood Culture - Preliminary Blood Culture (Wb) - Anticubital Right No growth in 48 hours. 03/09/19 03:00 Blood Culture - Preliminary Blood Culture (Wb) - Anticubital Right No growth in 48 hours. Laboratory Tests Past 24 Hrs 03/12/19 03/12/19 07:27 07:27 WBC 10.7 RBC 3.76 L Hgb 10.2 L Hct 31.6 L MCV 84.0 MCH 27.1 MCHC 32.3 RDW 13.8 RDW Differential 42.4 Plt Count 282 MPV 9.9 Immature Gran % (Auto) 1.100 H Neut % (Auto) 77.1 H Lymph % (Auto) 14.8 L [place] % (Auto) 5.1 Eos % (Auto) 1.2 Baso % (Auto) 0.7 Absolute Neuts (auto) 8.3 H Absolute Lymphs (auto) 1.59 Total Counted Not Reportable Differential Comment SCANNED Platelet Estimate ADEQUATE Plt Morphology Comment CLUMPED Sodium 138 Potassium 3.5 Chloride 107 Carbon Dioxide 25.0 Anion Gap 6 BUN 9 Creatinine 0.46 L Estim Creat Clear Calc 134.77 Est GFR (MDRD) Af Amer 189 Est GFR (MDRD) Non-Af 156 BUN/Creatinine Ratio 19.5 Glucose 158 H Calcium 7.4 L POC Glucose 03/12/19 03/12/19 03/11/19 06:32 00:25 21:48 POC Glucose 166 H 168 H 177 H 03/11/19 03/11/19 17:37 12:09 POC Glucose 178 H 207 H Medical Necessity - Tobacco Use Smoking Status: Former smoker Assessment/Plan All Active Problems (Last Reviewed 03/09/19 @ 05:20 by Andrew Abreu MD) Sepsis (Acute) Abdominal abscess (Acute) Hyperglycemia (Acute) I am not going to advance her diet as of yet. It is okay for her to take a shower.
[2019-03-12] MEDS: Ciprofloxacin 400 MG/200 ML BAG 200 MG IV ×2 (11:33→22:39)
[2019-03-12 14:00] VITALS: BP 132/81; PULSE 88; RESP 16; TEMP 36.5; O2SAT 97
[2019-03-12 14:31] LABS: Bedside Glucose 185 mg/dL (70-110)
--- NOTE | 2019-03-12 16:01 | PCM.PROGNOTE ---
Patient Problems: Active and Suspected Problems (Last Reviewed 03/09/19 @ 05:20 by Andrew Abreu MD) Sepsis (Acute) Abdominal abscess (Acute) Hyperglycemia (Acute) Subjective: She was seen and examined today, she has not been passing flatus. She is still n.p.o. - Physical Exam General: Alert, Oriented x3, Cooperative, No apparent distress, Well developed, Well nourished HEENT: Atraumatic, PERRLA, EOMI, Normocephalic Oral: Moist Mucosa Neck: Supple, No JVD, No Nuchal Rigidity, Trachea Midline, Thyroid Normal Size and Texture Lungs: Clear to auscultation, Normal air movement, No rhonchi, No wheeze, No rales Cardiovascular: Regular rate, Regular Rhythm, Normal S1, Normal S2, No murmurs, No Ectopic Activity, PMI Normal, No rub noted, No Gallop Abdomen: Soft, Bowel Sounds Not Present Extremities: No clubbing, No cyanosis, No edema, Capillary Refill Less than 3 Seconds Skin: No rashes, No breakdown Musculoskeletal: No Tenderness to Palpation of Joints or Extremities Neurological: Cranial nerves II-XII grossly intact, Neuro grossly intact, Sensory exam intact to light touch and pain, Coordination normal Psych/Mental Status: Normal Affect, Appropriate, Alert and oriented to time, place, person, mood and affect Vital Signs Temp Pulse Resp BP Pulse Ox 97.7 F L 88 16 132/81 H 97 03/12/19 14:00 03/12/19 14:00 03/12/19 14:00 03/12/19 14:00 03/12/19 14:00 Oxygen Flow Rate (L/min) 3.5 Oxygen Delivery Method Room Air Weight: 95.3 kg Body Mass Index (BMI) 36.1 Finger Stick Blood Glucose 262 Intake and Output for Last 24 Hours 03/10/19 03/11/19 03/12/19 23:59 23:59 23:59 Intake Total 2251 / 2251 2948 / 2948 3096 / 3096 Output Total 551 / 551 1275 / 1275 Balance 1700 / 1700 1673 / 1673 3096 / 3096 Microbiology Past 72 Hours 03/09/19 11:40 Gram Stain - Final Wound Abcess - Abdominal Wound Culture - Final Escherichia coli Anaerobic Culture - Preliminary Checking for anaerobes, further studies to follow. 03/09/19 11:40 Gram Stain - Final Incision/Surgical Site Wound Culture - Preliminary No growth-Final to follow 03/09/19 03:15 Blood Culture - Preliminary Blood Culture (Wb) - Anticubital Right No growth in 48 hours. 03/09/19 03:00 Blood Culture - Preliminary Blood Culture (Wb) - Anticubital Right No growth in 48 hours. Laboratory Tests Past 24 Hrs 03/12/19 03/12/19 07:27 07:27 WBC 10.7 RBC 3.76 L Hgb 10.2 L Hct 31.6 L MCV 84.0 MCH 27.1 MCHC 32.3 RDW 13.8 RDW Differential 42.4 Plt Count 282 MPV 9.9 Immature Gran % (Auto) 1.100 H Neut % (Auto) 77.1 H Lymph % (Auto) 14.8 L [place] % (Auto) 5.1 Eos % (Auto) 1.2 Baso % (Auto) 0.7 Absolute Neuts (auto) 8.3 H Absolute Lymphs (auto) 1.59 Total Counted Not Reportable Differential Comment SCANNED Platelet Estimate ADEQUATE Plt Morphology Comment CLUMPED Sodium 138 Potassium 3.5 Chloride 107 Carbon Dioxide 25.0 Anion Gap 6 BUN 9 Creatinine 0.46 L Estim Creat Clear Calc 134.77 Est GFR (MDRD) Af Amer 189 Est GFR (MDRD) Non-Af 156 BUN/Creatinine Ratio 19.5 Glucose 158 H Calcium 7.4 L POC Glucose 03/12/19 03/12/19 03/12/19 14:22 06:32 00:25 POC Glucose 185 H 166 H 168 H 03/11/19 03/11/19 21:48 17:37 POC Glucose 177 H 178 H Medical Necessity - Tobacco Use Smoking Status: Former smoker Assessment/Plan All Active Problems (Last Reviewed 03/09/19 @ 05:20 by Andrew Abreu MD) Sepsis (Acute) Abdominal abscess (Acute) Hyperglycemia (Acute) #1 perforated appendicitis with abscess and phlegmon-status post laparotomy ileocecectomy with small bowel resection-postop day #3-continue care per surgery #2 type 2 diabetes-continue to monitor blood sugars, administer sliding scale insulin as needed #3 hypertension-patient's blood pressure has not been a problem, continue to observe #4 hyperlipidemia #5 sepsis secondary to perforated appendicitis with abscess-organism E. coli, patient currently on Cipro and Flagyl Code Visit Inpatient E&M: 32949 Subs Hosp L2
[2019-03-12 17:50] LABS: Bedside Glucose 158 mg/dL (70-110)
[2019-03-12 19:57] VITALS: BP 127/72; PULSE 92; RESP 18; TEMP 36.8; O2SAT 96
[2019-03-12 21:36] LABS: Bedside Glucose 129 mg/dL (70-110)
[2019-03-12 22:50] LABS: Bedside Glucose 129 mg/dL (70-110)
[2019-03-12] MEDS: Ketorolac 15 MG/ML Vial IV (23:48)
[2019-03-12] MEDS: Ondansetron 4 MG/2 ML Vial IV (23:48)
[2019-03-12] MEDS: 0.9% NaCl Peripheral Flush Adult/Peds IV (23:48)
[2019-03-13] MEDS: Lactated Ringers 1,000 ML 120 ML IV (02:17)
[2019-03-13 05:17] VITALS: BP 148/95; PULSE 86; RESP 18; TEMP 36.9; O2SAT 95
[2019-03-13 07:08] VITALS: O2SAT 93
[2019-03-13 07:26] LABS: Bedside Glucose 119 mg/dL (70-110)
[2019-03-13 07:47] VITALS: BP 133/73
--- NOTE | 2019-03-13 08:29 | PCM.PN.SRG ---
Patient Problems: Active and Suspected Problems (Last Reviewed 03/09/19 @ 05:20 by Andrew Abreu MD) Sepsis (Acute) Abdominal abscess (Acute) Hyperglycemia (Acute) Subjective: Patient is passing flatus. Pain is slowly improving. No nausea no vomiting. Objective: Abdomen has good bowel sounds dressing is dry. No rebound guarding or peritoneal signs are identified. - Physical Exam Vital Signs Temp Pulse Resp BP Pulse Ox 98.4 F 86 18 133/73 H 93 03/13/19 05:17 03/13/19 05:17 03/13/19 05:17 03/13/19 07:47 03/13/19 07:08 Oxygen Flow Rate (L/min) 3.5 Oxygen Delivery Method Room Air Weight: 210 lb 1.608 oz Body Mass Index (BMI) 36.1 Finger Stick Blood Glucose 262 Intake and Output for Last 24 Hours 03/11/19 03/12/19 03/13/19 23:59 23:59 23:59 Intake Total 2948 / 2948 3096 / 3096 1499 / 1499 Output Total 1275 / 1275 Balance 1673 / 1673 3096 / 3096 1499 / 1499 Microbiology Past 72 Hours 03/09/19 11:40 Gram Stain - Final Wound Abcess - Abdominal Wound Culture - Final Escherichia coli Anaerobic Culture - Preliminary Checking for anaerobes, further studies to follow. 03/09/19 11:40 Gram Stain - Final Incision/Surgical Site Wound Culture - Preliminary No growth-Final to follow 03/09/19 03:15 Blood Culture - Preliminary Blood Culture (Wb) - Anticubital Right No growth in 48 hours. 03/09/19 03:00 Blood Culture - Preliminary Blood Culture (Wb) - Anticubital Right No growth in 48 hours. Laboratory Tests Past 24 Hrs 03/12/19 07:27 Total Counted Not Reportable Differential Comment SCANNED Platelet Estimate ADEQUATE Plt Morphology Comment CLUMPED POC Glucose 03/13/19 03/12/19 03/12/19 05:14 22:45 21:27 POC Glucose 119 H 129 H 129 H 03/12/19 03/12/19 17:43 14:22 POC Glucose 158 H 185 H Medical Necessity - Tobacco Use Smoking Status: Former smoker Assessment/Plan All Active Problems (Last Reviewed 03/09/19 @ 05:20 by Andrew Abreu MD) Sepsis (Acute) Abdominal abscess (Acute) Hyperglycemia (Acute) We will advance diet to clear liquids. She may take a shower.
[2019-03-13] MEDS: Ciprofloxacin 400 MG/200 ML BAG 200 MG IV ×2 (09:30→21:31)
[2019-03-13] MEDS: Insulin Lispro 100 UNIT/ML INSULN.PEN SQ ×3 (11:27→23:52)
[2019-03-13 11:30] VITALS: BP 129/77; PULSE 89; RESP 18; TEMP 36.7; O2SAT 98
[2019-03-13 11:31] LABS: Bedside Glucose 167 mg/dL (70-110)
[2019-03-13] MEDS: 0.9% NaCl Peripheral Flush Adult/Peds IV (15:59)
[2019-03-13 18:00] VITALS: BP 142/80; PULSE 91; RESP 18; TEMP 36.6; O2SAT 100
[2019-03-13 18:00] LABS: Bedside Glucose 169 mg/dL (70-110)
--- NOTE | 2019-03-13 18:03 | PCM.PROGNOTE ---
Patient Problems: Active and Suspected Problems (Last Reviewed 03/09/19 @ 05:20 by Andrew Abreu MD) Sepsis (Acute) Abdominal abscess (Acute) Hyperglycemia (Acute) Subjective: Patient was seen and examined today, she had a bowel movement and is passing flatus, I talked to surgery about advancing her diet to soft diet and so have advanced her diet. - Physical Exam General: Alert, Oriented x3, Cooperative, No apparent distress HEENT: Atraumatic, PERRLA, EOMI, Normocephalic Oral: Moist Mucosa Neck: Supple, No JVD, Trachea Midline, Thyroid Normal Size and Texture Lungs: Clear to auscultation, Normal air movement, No rhonchi, No wheeze, No rales Cardiovascular: Regular rate, Regular Rhythm, Normal S1, Normal S2, No murmurs, No Ectopic Activity, PMI Normal, No rub noted, No Gallop Abdomen: Bowel Sounds Present, Soft, Non Tender, Non-Distended Extremities: No edema, Capillary Refill Less than 3 Seconds Skin: No rashes, No breakdown Musculoskeletal: No Tenderness to Palpation of Joints or Extremities Neurological: Cranial nerves II-XII grossly intact, Neuro grossly intact, Sensory exam intact to light touch and pain, Coordination normal Psych/Mental Status: Normal Affect, Appropriate, Alert and oriented to time, place, person, mood and affect Vital Signs Temp Pulse Resp BP Pulse Ox 98.1 F 89 18 129/77 H 98 03/13/19 11:30 03/13/19 11:30 03/13/19 11:30 03/13/19 11:30 03/13/19 11:30 Oxygen Flow Rate (L/min) 3.5 Oxygen Delivery Method Room Air Weight: 95.3 kg Body Mass Index (BMI) 36.1 Finger Stick Blood Glucose 262 Intake and Output for Last 24 Hours 03/11/19 03/12/19 03/13/19 23:59 23:59 23:59 Intake Total 2948 / 2948 3096 / 3096 3402 / 3402 Output Total 1275 / 1275 Balance 1673 / 1673 3096 / 3096 3402 / 3402 Microbiology Past 72 Hours 03/09/19 11:40 Gram Stain - Final Incision/Surgical Site Wound Culture - Final No growth aerobically. 03/09/19 11:40 Gram Stain - Final Wound Abcess - Abdominal Wound Culture - Final Escherichia coli Anaerobic Culture - Preliminary Checking for anaerobes, further studies to follow. 03/09/19 03:15 Blood Culture - Preliminary Blood Culture (Wb) - Anticubital Right No growth in 48 hours. 03/09/19 03:00 Blood Culture - Preliminary Blood Culture (Wb) - Anticubital Right No growth in 48 hours. POC Glucose 03/13/19 03/13/19 03/13/19 17:43 11:25 05:14 POC Glucose 169 H 167 H 119 H 03/12/19 03/12/19 22:45 21:27 POC Glucose 129 H 129 H Medical Necessity - Tobacco Use Smoking Status: Former smoker Assessment/Plan All Active Problems (Last Reviewed 03/09/19 @ 05:20 by Andrew Abreu MD) Sepsis (Acute) Abdominal abscess (Acute) Hyperglycemia (Acute) #1 perforated appendicitis with abscess and phlegmon-status post laparotomy ileocecectomy with small bowel resection-postop day #4-continue care per surgery #2 type 2 diabetes-continue to monitor blood sugars, administer sliding scale insulin as needed #3 hypertension-patient's blood pressure medicine will be restarted at a lower dose #4 hyperlipidemia #5 sepsis secondary to perforated appendicitis with abscess-organism E. coli, patient currently on Cipro and Flagyl Code Visit Inpatient E&M: 72876 Subs Hosp L2
[2019-03-13 19:45] VITALS: BP 137/76; PULSE 100; RESP 18; TEMP 37; O2SAT 95
[2019-03-13 21:41] LABS: Bedside Glucose 234 mg/dL (70-110)
[2019-03-13 23:56] LABS: Bedside Glucose 247 mg/dL (70-110)
[2019-03-14] MEDS: Insulin Lispro 100 UNIT/ML INSULN.PEN SQ ×2 (05:25→08:09)
[2019-03-14 05:28] VITALS: BP 133/71; PULSE 86; RESP 16; TEMP 37.1; O2SAT 98
[2019-03-14 05:36] LABS: Bedside Glucose 212 mg/dL (70-110)
[2019-03-14 06:40] VITALS: O2SAT 94
[2019-03-14 08:03] VITALS: BP 149/96; PULSE 88; RESP 18; TEMP 36.4; O2SAT 96
--- NOTE | 2019-03-14 08:08 | PCM.PN.SRG ---
Patient Problems: Active and Suspected Problems (Last Reviewed 03/09/19 @ 05:20 by Andrew Abreu MD) Sepsis (Acute) Abdominal abscess (Acute) Hyperglycemia (Acute) Subjective: Patient passing gas and having bowel movements, tolerating a soft diet - Physical Exam General: Alert, Oriented x3, Cooperative, No apparent distress HEENT: Atraumatic Abdomen: Soft, Non-Distended, Tender - Near incision incision clean dry and intact with alban, trocar sites closed with alban, left upper trocar site slight erythema, trocar site alban removed with bandage placed. Extremities: No clubbing, No cyanosis, No edema Vital Signs Temp Pulse Resp BP Pulse Ox 97.6 F L 88 18 149/96 H 96 03/14/19 08:03 03/14/19 08:03 03/14/19 08:03 03/14/19 08:03 03/14/19 08:03 Oxygen Flow Rate (L/min) 3.5 Oxygen Delivery Method Room Air Weight: 210 lb 1.608 oz Body Mass Index (BMI) 36.1 Finger Stick Blood Glucose 262 Intake and Output for Last 24 Hours 03/12/19 03/13/19 03/14/19 23:59 23:59 23:59 Intake Total 3096 / 3096 3922 / 3922 508 / 508 Balance 3096 / 3096 3922 / 3922 508 / 508 Microbiology Past 72 Hours 03/09/19 03:15 Blood Culture - Final Blood Culture (Wb) - Anticubital Right No growth in 5 days. 03/09/19 03:00 Blood Culture - Final Blood Culture (Wb) - Anticubital Right No growth in 5 days. 03/09/19 11:40 Gram Stain - Final Incision/Surgical Site Wound Culture - Final No growth aerobically. 03/09/19 11:40 Gram Stain - Final Wound Abcess - Abdominal Wound Culture - Final Escherichia coli Anaerobic Culture - Preliminary Checking for anaerobes, further studies to follow. POC Glucose 03/14/19 03/13/19 03/13/19 05:22 23:48 21:27 POC Glucose 212 H 247 H 234 H 03/13/19 03/13/19 17:43 11:25 POC Glucose 169 H 167 H Medical Necessity - Tobacco Use Smoking Status: Former smoker Assessment/Plan All Active Problems (Last Reviewed 03/09/19 @ 05:20 by Andrew Abreu MD) Sepsis (Acute) Abdominal abscess (Acute) Hyperglycemia (Acute) 43-year-old female postop day 5 status post ileocecectomy, small bowel resection due to perforated appendicitis with abscess 1. Tolerating soft diet, +BM 2. Continue pain control 3. Continue ambulation Okay to DC per surgery. We will continue Cipro Flagyl for another 2 days p.o. patient make a follow-up appointment at the end of this week for staple removal. Anjelica Jeffries M.D. Pager: [phone] [facility] [address] [place] [address], [address] [place] [address] Office: [phone]
[2019-03-14 08:15] LABS: Bedside Glucose 185 mg/dL (70-110)
[2019-03-14 08:16] VITALS: PULSE 88
--- NOTE | 2019-03-14 09:07 | PCM.DC ---
- Discharge Diagnoses Current Active Problems: Current Active and Chronic Problems (Last Reviewed 03/09/19 @ 05:20 by Andrew Abreu MD) Sepsis (Acute) Abdominal abscess (Acute) Hyperglycemia (Acute) HTN (hypertension) (Chronic) You will use the following diet at home:: No restrictions Discharge Activity: Return to Normal Activity, May not drive while taking narcotic pain medications. Allergies/Adverse Reactions: Allergies amoxicillin [From Augmentin] Allergy (Verified 03/08/19 20:16) Rash clavulanic acid [From Augmentin] Allergy (Verified 03/08/19 20:16) Rash Medications to take at Discharge Gemfibrozil 600 mg PO BID 03/08/19 Insulin Glargine,Hum.rec.anlog [Toujeo Solostar] 24 units SQ DAILY 03/08/19 Lisinopril [Zestril] 5 mg PO DAILY 03/08/19 Ciprofloxacin [Cipro] 500 mg PO BID #4 tablet 03/14/19 Metronidazole 500 mg PO TID #6 tablet 03/14/19 The following prescriptions were given: Ciprofloxacin [Cipro] 500 mg PO BID #4 tablet Metronidazole 500 mg PO TID #6 tablet Primary Care Physician: Ant Valladares MD [Primary Care Provider] - Please follow up with your Primary Care Physician in: in 1-2 weeks Test Results: Test results from this visit will be discussed in further detail at your follow-up appointment, if applicable. Please Follow Up With: Anjelica Jeffries MD When: in 2 weeks; to follow-up at the office for suture removal on 03/18/19 Proposed Discharge Date: 03/14/19
--- NOTE | 2019-03-14 09:11 | DCINST_ITS ---
- Discharge Diagnoses Current Active Problems: Current Active and Chronic Problems (Last Reviewed 03/09/19 @ 05:20 by Andrew Abreu MD) Sepsis (Acute) Abdominal abscess (Acute) Hyperglycemia (Acute) HTN (hypertension) (Chronic) You will use the following diet at home:: No restrictions Discharge Activity: Return to Normal Activity, May not drive while taking narcotic pain medications. Allergies/Adverse Reactions: Allergies amoxicillin [From Augmentin] Allergy (Verified 03/08/19 20:16) Rash clavulanic acid [From Augmentin] Allergy (Verified 03/08/19 20:16) Rash Medications to take at Discharge Gemfibrozil 600 mg PO BID 03/08/19 Insulin Glargine,Hum.rec.anlog [Toujeo Solostar] 24 units SQ DAILY 03/08/19 Lisinopril [Zestril] 5 mg PO DAILY 03/08/19 Ciprofloxacin [Cipro] 500 mg PO BID #4 tablet 03/14/19 Metronidazole 500 mg PO TID #6 tablet 03/14/19 The following prescriptions were given: Ciprofloxacin [Cipro] 500 mg PO BID #4 tablet Metronidazole 500 mg PO TID #6 tablet Primary Care Physician: Ant Valladares MD [Primary Care Provider] - Please follow up with your Primary Care Physician in: in 1-2 weeks Test Results: Test results from this visit will be discussed in further detail at your follow- up appointment, if applicable. Please Follow Up With: Anjelica Jeffries MD When: in 2 weeks; to follow-up at the office for suture removal on 03/18/19 Proposed Discharge Date: 03/14/19
--- NOTE | 2019-03-14 09:12 | PCM.DC.SUM ---
Discharge Date and Diagnosis - Problem List Patient Problems: Active and Suspected Problems (Last Reviewed 03/09/19 @ 05:20 by Andrew Abreu MD) Perforated appendicitis (Acute) Sepsis (Acute) Abdominal abscess (Acute) Hyperglycemia (Acute) Date of Admission: 03/09/19 Date of Discharge: 03/14/19 - Primary Discharge Diagnosis Active and Suspected Problems (Last Reviewed 03/09/19 @ 05:20 by Andrew Abreu MD) Perforated appendicitis (Acute) Sepsis (Acute) Abdominal abscess (Acute) Hyperglycemia (Acute) - Secondary Discharge Diagnosis Chronic Problems (Last Reviewed 03/09/19 @ 05:20 by Andrew Abreu MD) HTN (hypertension) (Chronic) Hospital Course and Treatment Summary of Care Provided: The patient is a 43 year old F [] #1 perforated appendicitis with abscess and phlegmon-status post laparotomy ileocecectomy with small bowel resection-postop day #4-continue care per surgery #2 type 2 diabetes-continue to monitor blood sugars, administer sliding scale insulin as needed #3 hypertension-patient's blood pressure medicine will be restarted at a lower dose #4 hyperlipidemia #5 sepsis secondary to perforated appendicitis with abscess-organism E. coli, patient currently on Cipro and Flagyl Patient Problems: Active and Suspected Problems (Last Reviewed 03/09/19 @ 05:20 by Andrew Abreu MD) Perforated appendicitis (Acute) Sepsis (Acute) Abdominal abscess (Acute) Hyperglycemia (Acute) Objective: GENERAL: cooperative HEENT: Atraumatic; moist oral mucosa EYES; Anicteric, Normal Conjunctiva NECK; supple, normal thyroid, no distended JVD. RESPIRATORY: Diminished to auscultation bilaterally, CARDIOVASCULAR: Regular S1 S2, no audible murmurs NEURO: Awake; no lateralizing signs. SKIN: No Rash PSYCH; Normal affect - Physical Exam Vital Signs Temp Pulse Resp BP Pulse Ox 97.6 F L 88 18 149/96 H 96 03/14/19 08:03 03/14/19 08:16 03/14/19 08:03 03/14/19 08:03 03/14/19 08:03 Oxygen Flow Rate (L/min) 3.5 Oxygen Delivery Method Room Air Weight: 95.3 kg Body Mass Index (BMI) 36.1 Finger Stick Blood Glucose 262 Intake and Output for Last 24 Hours 03/12/19 03/13/1903/14/19 23:59 23:59 23:59 Intake Total 3096 / 3096 3922 / 3922 508 / 508 Balance 3096 / 3096 3922 / 3922 508 / 508 Microbiology Past 72 Hours 03/09/19 03:15 Blood Culture - Final Blood Culture (Wb) - Anticubital Right No growth in 5 days. 03/09/19 03:00 Blood Culture - Final Blood Culture (Wb) - Anticubital Right No growth in 5 days. 03/09/19 11:40 Gram Stain - Final Incision/Surgical Site Wound Culture - Final No growth aerobically. 03/09/19 11:40 Gram Stain - Final Wound Abcess - Abdominal Wound Culture - Final Escherichia coli Anaerobic Culture - Preliminary Checking for anaerobes, further studies to follow. POC Glucose 03/14/19 03/14/19 03/13/19 08:08 05:22 23:48 POC Glucose 185 H 212 H 247 H 03/13/19 03/13/19 03/13/19 21:27 17:43 11:25 POC Glucose 234 H 169 H 167 H Discharge Diet: No Restrictions, Light diet - advance as tolerated Discharge Activity: Return to Normal Activity, May not drive while taking narcotic pain medications. Home Medications: Medications to take at Discharge Gemfibrozil 600 mg PO BID 03/08/19 Insulin Glargine,Hum.rec.anlog [Toujeo Solostar] 24 units SQ DAILY 03/08/19 Lisinopril [Zestril] 5 mg PO DAILY 03/08/19 Ciprofloxacin [Cipro] 500 mg PO BID #4 tablet 03/14/19 Metronidazole 500 mg PO TID #6 tablet 03/14/19 Following Prescrptions Were Given to Patient: Ciprofloxacin [Cipro] 500 mg PO BID #4 tablet Metronidazole 500 mg PO TID #6 tablet Primary Care Physician: Ant Valladares MD [Primary Care Provider] - Please follow up with your Primary Care Physician in: in 1-2 weeks Please Follow Up With: Anjelica Jeffries MD When: in 2 weeks; to follow-up at the office for suture removal on 03/18/19 Disposition: Home Minutes spent on discharge:: 40 Patient Condition:: Stable Medical Necessity - Tobacco Use Smoking Status: Former smoker Meaningful Use Info Meaningful Use Diagnoses (Choose all that apply): None applicable Code Visit Inpatient E&M: 40995 Disch Hosp
== END 2019-03-14 11:13 | disposition home or self-care (01) | DRG 853 ==
LOC: ED 21:36 → MS3 03-09 02:02
PROVIDERS: Internal Medicine; Surgery; Admitting Provider Hospitalist; Emergency Provider Emergency Medicine; Family Provider Family Medicine; PCP Family Medicine; Referring Provider Hospitalist; Visit Provider Internal Medicine
PROC: 0DTH0ZZ Resection of Cecum, Open Approach (ICD-10-PCS; CPT 49320; principal; 2019-03-09 09:15)
DX: A41.9 Sepsis, unspecified organism (principal); K35.33 Acute appendicitis with perforation, localized peritonitis, and gangrene, with abscess; E87.1 Hypo-osmolality and hyponatremia; E11.65 Type 2 diabetes mellitus with hyperglycemia; E78.5 Hyperlipidemia, unspecified; Z53.31 Laparoscopic surgical procedure converted to open procedure; B96.20 Unspecified Escherichia coli [E. coli] as the cause of diseases classified elsewhere; I10 Essential (primary) hypertension; Z87.891 Personal history of nicotine dependence; Z79.4 Long term (current) use of insulin; Z90.49 Acquired absence of other specified parts of digestive tract
CPT/HCPCS: 36415; 72192; 74177; 80048; 81001; 82962; 83036; 83605; 83735; 84100; 84703; 85025; 85610; 86850; 86900; 87040; 87070; 87075; 87077; 87186; 87205; 88305; 88307; 99285; J7030; J7040; J7120; Q9967; A4216; C1760; J0744; J2405

== ENCOUNTER 2019-03-24 17:20 | Emergency (ER) | payer OTHER, SELFPAY ==
[2019-03-09 09:02] VITALS: BMI 36.1
[2019-03-24 17:21] VITALS: BP 160/103; PULSE 129; RESP 16; TEMP 37.2; O2SAT 100; BMI 34.7
--- NOTE | 2019-03-24 17:52 | CT_ITS ---
STUDY: CT ABDOMEN AND PELVIS WITH CONTRAST REASON FOR EXAM: Female, 43 years old. Pain, recent perforated appendectomy and small bowel resection, cholecystectomy. RADIATION DOSAGE (If Supplied By Facility): CTDIvol = ( 18.24 ) mGy, DLP = ( 1238.08 ) mGycm TECHNIQUE: Transaxial images were obtained from the dome of the diaphragm to the symphysis pubis without oral contrast. 100ml IV/Oral Isovue 300 was administered. Sagittal and coronal images were reconstructed. Individualized dose optimization techniques were used for this CT. COMPARISON: None. FINDINGS: The visualized lung bases are unremarkable. The visualized portions of the heart are within normal limits. Normal liver. There are surgical clips in the gallbladder fossa consistent with a prior cholecystectomy. Normal spleen. Normal pancreas. Normal bilateral adrenal glands. Normal right kidney. Normal left kidney. Normal visualized stomach. Within the right quadrant of the adjacent small bowel demonstrates wall thickening likely secondary to right lower quadrant below described inflammation. Postoperative changes of the right hemicolon are present with multiple sutures in place. No evidence of underlying obstruction. The appendix is visualized and appears normal. Normal abdominal aorta. Normal inferior vena cava. Within the right quadrant is again noted complex fluid collection with scattered areas of air consistent with right lower quadrant small areas of abscesses with the largest measuring approximately 2.3 cm as seen on series 2 image 66 which compared with February is reduced in size as seen on series 2 image 8 which then measured 8.5 x 6.1 cm. Normal urinary bladder. IUD is in place. Midline postsurgical changes are present. Normal osseous structures. CT/Abdomen/Pelvis WITH Contrast IMPRESSION: 1. Findings consistent with right lower quadrant small complex fluid collections consistent with small underlying phlegmon and small abscesses which comparison to 09 March 2019 are significantly reduced in size. No evidence of underlying obstruction with adjacent small bowel inflammation/enteritis. Postoperative changes as above. Electronically Signed: Fredi Crump DO at 20:30 EDT , Service support ,
--- NOTE | 2019-03-24 17:55 | ED.VISSUMM ---
- ER Visit Summary Date of Service: 03/24/19 Chief Complaint: Abdominal pain History of Present Illness: The patient is a 43 F who presents with abdominal pain that has been persistent since her appendectomy 2 weeks ago. Patient states the pain is cramping and is over the right lower quadrant. Patient states she saw her surgeon yesterday who removed the alban. Patient states that last night she started having some nausea and vomiting. Patient also admits to some urinary frequency but denies any dysuria or hematuria. Patient denies any diarrhea, melena, or hematochezia. Patient admits to subjective fevers and chills. Patient states she finished her antibiotics last week. Patient states she just wants to make sure there is nothing bad in her abdomen. Physical Examination: Vital signs are stable. Patient is afebrile. Patient is in no acute distress. Oral mucosa is pink and moist. Neck is supple. Trachea is midline. There is no JVD noted. Heart was regular rate and rhythm. Lungs are clear and equal bilateral. Abdomen is soft. Bowel sounds are normal. There is mild right lower quadrant tenderness. There is no rebound or guarding noted. Skin is warm dry. There is some dehiscence to the incision above the umbilicus. There is no surrounding erythema. There is no discharge or drainage noted. Cranial nerves II through XII are intact. There are no focal motor or sensory deficits noted. The remaining physical exam is within normal limits. Test Results: CBC shows a slight leukocytosis of 13.5. Metabolic profile shows a sodium of 128 and chloride of 92. Urinalysis does not show any evidence of urinary tract infection. CT scan of the abdomen and pelvis was obtained. There is a small abscess and phlegmon in the right lower quadrant of the abdomen. This is much improved compared to previous CT scan. Emergency Department Course and Treatment: Patient was feeling better on reevaluation. Case was discussed with Dr. Schuster who is covering for Dr. Jeffries. He recommended starting the patient back on Cipro and Flagyl. Patient was given prescriptions for Cipro and Flagyl. Patient was instructed to follow-up with Dr. Jeffries in 5 to 7 days. Patient understood and was agreeable with the plan. All questions were answered. Disposition: Discharge home Impression: Abdominal abscess This note was generated with [employer] dictation software. It may contain incorrect words, spelling, and punctuation that were not noted in review of the chart prior to signing ED Disposition - Plan for ED Patient: Disposition: Home or Assisted Living Diagnosis: Abdominal abscess Instructions: ED Abdominal Pain Unkn Cause Prescriptions: Ciprofloxacin [Cipro] 500 mg PO BID #20 tab Metronidazole [Flagyl] 500 mg PO Q6H #40 tab Referrals: Ant Valladares MD [Primary Care Provider] - Anjelica Jeffries MD [STAFF PHYSICIAN] - 5-7 Days
--- NOTE | 2019-03-24 17:58 | ED.DCSUM_ITS ---
- ER Visit Summary Date of Service: 03/24/19 Chief Complaint: Abdominal pain History of Present Illness: The patient is a 43 F who presents with abdominal pain that has been persistent since her appendectomy 2 weeks ago. Patient states the pain is cramping and is over the right lower quadrant. Patient sta edgar she saw her surgeon yesterday who removed the alban. Patient states that last night she started having some nausea and vomiting. Patient also admits to some urinary frequency but denies any dysuria or hematuria. Patient denies any diarrhea, melena, or hematochezia. Patient admits to subjective fevers and chills. Patient states she finished her antibiotics last week. Patient states she just wants to make sure there is nothing bad in her abdomen. Physical Examination: Vital signs are stable. Patient is afebrile. Patient is in no acute distress. Oral mucosa is pink and moist. Neck is supple. Trachea is midline. There is no JVD noted. Heart was regular rate and rhythm. Lungs are clear and equal bilateral. Abdomen is soft. Bowel sounds are normal. Th ere is mild right lower quadrant tenderness. There is no rebound or guarding noted. Skin is warm dry. There is some dehiscence to the incision above the umbilicus. There is no surrounding erythema. There is no discharge or drainage noted. Cranial nerves II through XII are intact. There are no focal motor or sensory deficits noted. The remaining physical exam is within normal limits. Test Results: CBC shows a slight leukocytosis of 13.5. Metabolic profile shows a sodium of 128 and chloride of 92. Urinalysis does not show any evidence of urinary tract infection. CT scan of the abdomen and pelvis was obtained. There is a small abscess and phlegmon in the right lower quadrant of the abdomen. This is much improved compared to previous CT scan. Emergency Department Course and Treatment: Patient was feeling better on reevaluation. Case was discussed with Dr. Schuster who is covering for Dr. Jeffries. He recommended starting the patient back on Cipro and Flagyl. Patient was given prescriptions for Cipro and Flagyl. Patient was instructed to follow-up with Dr. Jeffries in 5 to 7 days. Patient understood and was agreeable with the plan. All questions were answered. Disposition: Discharge home Impression: Abdominal abscess This note was generated with [employer] software. It may contain incorrect words, spelling, and punctuation that were not noted in review of the chart prior to signing ED Disposition - Plan for ED Patient: Disposition: Home or Assisted Living Diagnosis: Abdominal abscess Instructions: ED Abdominal Pain Unkn Cause Prescriptions: Ciprofloxacin [Cipro] 500 mg PO BID #20 tab Metronidazole [Flagyl] 500 mg PO Q6H #40 tab Referrals: Ant Valladares MD [Primary Care Provider] - Anjelica Jeffries MD [STAFF PHYSICIAN] - 5-7 Days
[2019-03-24 18:26] LABS: Absolute Lymphocyte Count 1.62 X10^3/ul (0.83-4.51); Absolute Neutrophil Count 10.4 X10^3/uL (2.0-7.7); Basophil# 0.07 X10^3/uL; Basophil% 0.5 % (0-1); Eosinophil# 0.06 X10^3/uL; Eosinophils% 0.4 % (0-5); Hematocrit 36.4 % (37-47); Hemoglobin 11.9 g/dl (12.0-15.0); Lymphocyte # 1.62 X10^3/ul (4.0); Mean Corp Hgb Conc 32.7 g/gl (32-36); Mean Corpuscular Hgb 26.8 pg (27.0-32.0); Mean Platelet Vol. 10.4 fl (6.2-12.0); Monocyte# 1.33 X10^3/uL; Monocyte% 9.9 % (0-10); Neutrophil # 10.36 X10^3/uL (2.7-7.7); Platelet Count 382 K/mm3 (150-450); RBC Distribution Width CV 13.8 % (11.6-14.6); Red Blood Count 4.44 M/mm3 (4.2-5.4); White Blood Count 13.5 K/mm3 (4.4-11.0)
[2019-03-24] MEDS: 0.9% Normal Saline 1,000 ML 1000 ML IV (18:27)
[2019-03-24 18:28] LABS: POSITIVE COUNT NO; POSITIVE DIFFERENTIAL NO; POSITIVE MORPHOLOGY NO
[2019-03-24 19:36] LABS: ALB/GLOB Ratio 0.5 RATIO (0.9-2.4); AST(SGOT) 9 U/L (15-37); Alanine Aminotransfer ALT/SGPT 10 U/L (13-56); Albumin, Serum 2.7 g/dL (3.2-5.0); Alkaline Phosphatase 98 U/L (45-117); Anion Gap 8 (5-15); BUN 12 mg/dL (7-18); BUN/Creat Ratio 14.2 RATIO (10-20); Calcium,Total 8.7 mg/dL (8.5-10.1); Chloride 92 mmol/L (98-107); Creatinine, Serum 0.84 mg/dL (0.55-1.02); EST Glomerular Filtration Rate 78 mL/min (>60); Est Glom Filt Rate - Afr Amer 94 mL/min (>60); Globulin 5.3 g/dL (2.2-4.2); Glucose 416 mg/dL (74-106); Lipase 110 U/L (73-393); Potassium 3.8 mmol/L (3.5-5.1); Sodium Level 128 mmol/L (136-145)
[2019-03-24 20:06] LABS: Mucous, Urine 0 SEEN /hpf (<or=2+); Red Blood Cells-Urine 0 SEEN /hpf (0-5)
[2019-03-24 20:13] LABS: Color, Urine Yellow (Yellow); Glucose, Dipstick 1000 mg/dl (Normal); Ketone-Dipstick Negative (Negative); Leukocyte Esterase-Dipstick Negative /ul (Negative); Nitrite-Dipstick Negative (Negative); Occult Blood-Urine Negative /ul (Negative); Protein-Dipstick 30 mg/dl (Negative); Specific Gravity, Urine 1.015 (1.002-1.030); Urine Bilirubin Dipstick Negative (Negative); Urine Clarity Clear (Clear); Urine Urobilinogen Normal (Normal)
[2019-03-24 20:18] LABS: Bacteria RARE /hpf (None Seen); Squamous Epithelial Cells - UA 5-10 SEEN /hpf (5-10); White Blood Cells 0-5 SEEN /hpf (0-5)
[2019-03-24 21:33] VITALS: BP 126/73; PULSE 114; RESP 17; RESP 19; TEMP 37.2; O2SAT 96; O2SAT 97
== END 2019-03-24 22:18 | disposition home or self-care (01) ==
PROVIDERS: Emergency Provider Emergency Medicine; Family Provider Family Medicine; PCP Family Medicine
DX: K65.1 Peritoneal abscess (principal); Z98.890 Other specified postprocedural states
CPT/HCPCS: 74177; 80053; 81001; 83690; 85025; 96360; 96361; 99283; J7030; Q9967; A4216

== ENCOUNTER → 2019-04-05 07:23 | Outpatient (CLI) | payer OTHER, SELFPAY ==
[2019-03-24 17:21] VITALS: BMI 34.7
--- NOTE | 2019-04-05 07:25 | CT_ITS ---
STUDY: CT ABDOMEN AND PELVIS WITH CONTRAST REASON FOR EXAM: Female, 43 years old. Follow-up examination of a phlegmon/abscess in the right lower quadrant. RADIATION DOSAGE (If Supplied By Facility): CTDIvol = ( 16.6 ) mGy, DLP = ( 1255.76 ) mGycm TECHNIQUE: Transaxial images were obtained from the dome of the diaphragm to the symphysis pubis with oral contrast. 100CC IV/Oral Isovue 300 was administered. Sagittal and coronal images were reconstructed. Individualized dose optimization techniques were used for this CT. COMPARISON: Comparison is made with prior study dated March 24, 2019. FINDINGS: Stable minimal increased markings at the lung bases. The visualized portions of the heart are within normal limits. Normal liver. There are surgical clips in the gallbladder fossa consistent with a prior cholecystectomy. Normal spleen. Normal pancreas. Normal bilateral adrenal glands. Normal right kidney. Normal left kidney. Normal visualized stomach. Normal small intestine. Postsurgical changes are seen in the right hemicolon. Scattered sigmoid diverticula. Mild residual increased markings are seen in the peritoneal fat surrounding the surgical site. No fluid collection is seen at this time. Normal abdominal aorta. Normal inferior vena cava. There is borderline retroperitoneal lymphadenopathy with enlarged nodes no greater than 10mm in the short axis diameter. Normal urinary bladder. IUD is seen within the uterus. Mild residual postsurgical changes are seen in the anterior abdominal wall. Normal osseous structures. CT/Abdomen/Pelvis WITH Contrast IMPRESSION: Mild residual postoperative changes in the right lower quadrant. No fluid collection is seen at this time. Electronically Signed: Alan Veliz, at 14:45 EDT , Service support ,
== END ==
PROVIDERS: Family Provider Family Medicine; PCP Family Medicine; Referring Provider Surgery; Visit Provider Surgery
DX: K35.32 Acute appendicitis with perforation, localized peritonitis, and gangrene, without abscess (principal); Z90.49 Acquired absence of other specified parts of digestive tract; L02.211 Cutaneous abscess of abdominal wall
CPT/HCPCS: 74177; Q9967